=== PATIENT | male | born 1940 | race Caucasian/White ===

== ENCOUNTER 2017-09-04 20:43 | Inpatient (IN) | payer OTHER ==
[~2017-09-04] VITALS: Ht 193 cm; Wt 94.1 kg
--- NOTE | 2017-09-04 21:38 | ED INFLUENZA/URI COMPLAINT ---
History of Present Illness General Chief Complaint: Chest Pain Stated Complaint: CP AND FEVER Source: patient, family Exam Limitations: confusion, poor historian Vital Signs & Intake/Output Vital Signs & Intake/Output Vital Signs Date Time Temp Pulse Resp B/P B/P Pulse O2 O2 Flow FiO2 Mean Ox Delivery Rate 09/04 2217 99.7 09/04 2216 99.7 84 20 132/80 95 Nasal 3.0L Cannula 09/04 2140 103.0 09/04 2100 94 Nasal 6.0L Cannula 09/04 2100 103.3 110 24 143/68 89 Room Air ED Intake and Output 09/05 0000 09/04 1200 Intake Total 250 Output Total Balance 250 Intake, IV 250 Allergies Coded Allergies: No Known Allergies (09/04/17) Triage Note: PT BIBA FROM HOME FOR C/O PRODUCTIVE COUGH, DIAPHORESIS, AMS PER FAMILY. PT ARRIVES VERY WARM TO TOUCH TEMP 103.3 ORAL, DIAPHORETIC, A/O X3. PT WITH SLIGHT SLURRING OF WORDS. 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 APPEARS SINUS TACH 100-110. Triage Nurses Notes Reviewed? yes HPI: Patient presents for evaluation of fever and lower chest pain. Patient states he ate some bad popcorn earlier tonight. In regards to his chest pain he states that began after walking up the stairs on while reporting to cardiac rehabilitation (patient is status post TAPVR and prior cardiac stents). Patient admits to having chills and shakes yesterday. While at home prior to arrival he was noted to be slumped over a coffee table alongside the chair he was seated in. Family states that he seems to have been confused over the past number of weeks but seems worse in association with this episode. The patient denies dyspnea or abdominal pain vomiting diarrhea rashes or known ill contacts. He states he has been coughing "a little" and did have burning with urination yesterday. He also complains of nausea. Past History Travel History Traveled to [place] past 21 day No Medical History Any Pertinent Medical History? 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 No Review of Systems Review of Systems Constitutional: Reports: fever. EENTM: Reports: no symptoms. Respiratory: Reports: no symptoms. Cardiovascular: Reports: no symptoms. GI: Reports: no symptoms. Genitourinary: Reports: no symptoms. Musculoskeletal: Reports: no symptoms. Skin: Reports: no symptoms. Neurological/Psychological: Reports: confusion. Hematologic/Endocrine: Reports: no symptoms. Immunologic/Allergic: Reports: no symptoms. All Other Systems: Reviewed and Negative Physical Exam Physical Exam Ears, Nose, Throat: SEE BELOW Comments: Gen.: Well-nourished, well-developed, no acute respiratory distress. Head: Normocephalic, atraumatic. Eyes: Normal inspection bilaterally Ears: Normal inspection bilaterally Nose: Normal inspection Throat/mouth : Moist mucosa Neck: Supple, full range of motion, no goiter Heart: Regular rate and rhythm, no murmurs rubs or gallops Lungs: Clear to auscultation bilaterally with normal air entry Chest: Nontender Back: Normal range of motion Abdomen: Soft, diffuse tenderness with brief voluntary guarding but no apparent rebound tenderness, nondistended, normal bowel sounds Extremities: Normal range of motion grossly, equal radial pulses, no cyanosis clubbing or edema Neurologic: Cranial nerves grossly intact, speech is often mumbled Skin: warm and dry Psychiatric: Calm, cooperative, no apparent delusions or hallucinations, answers questions readily but often incomprehensibly Core Measures Sepsis Present: Yes Sepsis Focused Exam Completed? Yes Progress Differential Diagnosis: pneumonia, CHOLANGITIS, DIVERTICULITIS, URINARY TRACT INFECTION, BACTEREMIA Plan of Care: Orders Procedure Date/time Status LACTIC ACID 09/05 0038 Active LACTIC ACID 09/04 2137 Complete CULTURE,URINE 09/04 2136 Active BLOOD CULTURE 09/04 2136 Active URINALYSIS 09/04 2136 Complete TROPONIN LEVEL 09/04 2136 Complete LIPASE 09/04 2136 Complete COMPREHENSIVE METABOLIC PANEL 09/04 2136 Complete CBC WITHOUT DIFFERENTIAL 09/04 2136 Complete EKG 09/04 2044 Active Laboratory Tests 09/04/17 2310: Urine Color YEL, Urine Clarity HAZY H, Urine pH 6.0, Ur Specific [place] 1.025, Urine Protein 30 H, Urine Ketones NEG, Urine Nitrite POS H, Urine Bilirubin NEG, Urine Urobilinogen 1.0, Ur Leukocyte Esterase MOD H, Ur Microscopic SEDIMENT EXAMINED, Urine RBC 1-3, Urine WBC 50-75 H, Ur Epithelial Cells FEW, Urine Bacteria PACKD H, Urine Hemoglobin MOD H, Urine Glucose NEG 09/04/172137: Lactic Acid 3.3 H 09/04/172109: Anion Gap 16, Estimated GFR > 60, BUN/Creatinine Ratio 25.6 H, Glucose 115 H, Calcium 8.1 L, Total Bilirubin 1.4 H, AST 20, ALT 26, Alkaline Phosphatase 149 H, Troponin I 0.09, Total Protein 6.5, Albumin 3.5, Globulin 3.0, Albumin/ Globulin Ratio 1.2, Lipase 23, CBC w Diff NO MAN DIFF REQ, RBC 4.25 L, MCV 96.4 H, MCH 33.3 H, MCHC 34.5, RDW 13.1, MPV 7.3 L, Gran % 91.6 H, Lymphocytes % 7.3 L, Monocytes % 0.9 L, Eosinophils % 0.1, Basophils % 0.1, Absolute Granulocytes 6.0, Absolute Lymphocytes 0.5 L, Absolute Monocytes 0.1, Absolute Eosinophils 0, Absolute Basophils 0 Microbiology 09/04 2309 URINE ROUT: Urine Culture - RECD 09/05 2119 BLOOD: Blood Culture - RECD 09/04 2109 BLOOD: Blood Culture - RECD Diagnostic Imaging: Discussed w/RAD: Radiology Read, CT Scan. Radiology Impression: PATIENT: COLIN OCHOA PRESENT AGE: 77 PATIENT ACCOUNT NO: [id number] : 38 LOCATION: [facility] [place] ORDERING PHYSICIAN: Reji Concepcion MD SERVICE DATE: 09/04/17 EXAM TYPE: CAT - CT ABD & PELVIS W/O IV CONTRAS EXAMINATION: CT ABDOMEN AND PELVIS WITHOUT CONTRAST CLINICAL INFORMATION: Fever, abdominal pain, diffuse tenderness COMPARISON: CT lumbar spine 05/09/2014 TECHNIQUE: Multidetector volumetric imaging was performed from the superior aspect of the liver through the pubic symphysis. Sagittal and coronal reformatted images were obtained on the technologist's workstation. DLP: 1077 mGy-cm FINDINGS: LUNG BASES: Ascending thoracic vascular graft is partially imaged. There is bibasilar atelectasis, left greater than right. No convincing consolidation or effusion. LIVER, GALLBLADDER, AND BILIARY TREE: Images of the upper abdomen are significantly limited by patient positioning. There are multiple ill-defined hypoattenuating lesions scattered throughout the liver. Many of these lesions are subcentimeter in size. Gallbladder is surgically absent. PANCREAS: The pancreas is grossly unremarkable. There is fatty atrophy. SPLEEN: Unremarkable. ADRENAL GLANDS: There is a left adrenal mass measuring 2.4 x 1.6 cm. The Hounsfield units of 22. The right adrenal gland is unremarkable. KIDNEYS AND URETERS: There is moderate bilateral perinephric stranding. No hydronephrosis. No radiodense renal calculi. BLADDER: Unremarkable. GASTROINTESTINAL TRACT: The small and large bowel are unremarkable. The appendix is unremarkable. ABDOMINAL WALL: No significant hernia is appreciated. LYMPH NODES: Normal. VASCULAR: Moderate vascular calcifications involving the abdominal aorta. PELVIC VISCERA: Unremarkable. OSSEOUS STRUCTURES: Known transitional anatomy. Lumbarization of S1. Multiple compression deformities are present throughout the visualized thoracic and lumbar spine. Vertebral plasty involving L4 vertebral body is demonstrated. There is more than 50% loss in height of the L2 vertebral body. There are significant superior endplate deformities involving the T11, T12 and L1 vertebral bodies. IMPRESSION: 1. Limited noncontrast study. The study is also significantly limited by patient arm positioning over the upper abdomen. The entire upper abdomen demonstrates extensive streak artifact related to positioning. 2. Scattered hypodense lesions throughout the liver, partially seen. These may represent cysts. These are not well characterized on the current study. 3. Bilateral moderate perinephric stranding without associated obstruction. 4. Osteopenia with multiple compression fractures involving the lower thoracic and lumbar spine. The most severe fracture involving the L2 vertebral body appears similar to the CT of the lumbar spine from 05/09/2014. Recommend interventional radiology consultation for the evaluation of kyphoplasty if there are ongoing symptoms. 5. Indeterminant left adrenal mass. This could be further evaluated with dedicated CT with adrenal protocol. DICTATED BY: Karon Hand MD DATE/TIME DICTATED:09/04/172226 IMAGERY INTELLIGENCE :SONALI DATE/TIME TRANSCRIBED:09/04/172226 CONFIDENTIAL, DO NOT COPY WITHOUT APPROPRIATE AUTHORIZATION. <Electronically signed in Other Vendor System> SIGNED BY: Karon Hand MD 09/04/172238 CXR Impression: PATIENT: COLIN OCHOA PRESENT AGE: 77 PATIENT ACCOUNT NO: [id number] : 38 LOCATION: [facility] [place] ORDERING PHYSICIAN: Reji Concepcion MD SERVICE DATE: 09/04/17 EXAM TYPE: RAD - XRY-PORTABLE CHEST XRAY EXAMINATION: XR PORTABLE CHEST CLINICAL INFORMATION: Fever, chest pain, cough COMPARISON: None TECHNIQUE: Portable frontal view of the chest was obtained. FINDINGS: The examination is very limited. The entire left lower lobe is excluded from the [id number]. The cardiac silhouette is probably enlarged. The inferior aspect of the cardiac silhouette is not visualized. A dual-lead pacemaker is positioned over the left upper and lateral chest. Leads are not completely visualized. There is prominence of the upper mediastinum, possibly related to positioning and overlying vascular structures. The visualized portions of the lungs appear normally aerated. There is no right pleural effusion. A left pleural effusion cannot be excluded. IMPRESSION: Extremely technically limited examination. Recommend repeat evaluation. DICTATED BY: Karon Hand MD DATE/TIME DICTATED:09/04/172207 IMAGERY INTELLIGENCE:SONALI DATE/ TIME TRANSCRIBED:09/04/172207 CONFIDENTIAL, DO NOT COPY WITHOUT APPROPRIATE AUTHORIZATION. <Electronically signed in Other Vendor System> SIGNED BY: Karon Hand MD 09/04/172212 Initial ED EKG: NSR, rate (105), LBBB Prior EKG: changed (NO LBBB ON PRIOR (08/03/2008)) Comments: 09/04/2017 11:18:37 PM I have updated Colin and his son on test results. Patient seems a bit more lucid at this time. He has no specific complaints currently. We are awaiting the urinalysis. I have discussed my intention to hospitalize Colin given his high fever and clinical presentation. ED Sepsis Exam Date of Focused Sepsis Exam: 09/05/17 Time of Focused Sepsis Exam: 0007 Sepsis Cardiac Exam: Regular Rate/Rhythm Sepsis Resp Exam: CTA Sepsis Cap Refill Exam: <2 Sec Sepsis Peripheral Pulse Exam: Normal Sepsis Peripheral Pulse Location: Radial Sepsis Skin Color Exam: Normal for Ethnicity Skin Temp/Moisture Exam: Warm/Dry Departure Departure Disposition: STILL A PATIENT Condition: Stable Clinical Impression Primary Impression: Sepsis Secondary Impressions: Adrenal mass, left Compression fracture of body of thoracic vertebra Compression fx, lumbar spine Qualifiers: Encounter type: initial encounter Lumbar vertebra fracture level: L2 Fracture type: closed Qualified Code: S32.020A - Wedge compression fracture of second lumbar vertebra, initial encounter for closed fracture UTI (urinary tract infection) Qualifiers: Urinary tract infection type: site unspecified Hematuria presence: without hematuria Qualified Code: N39.0 - Urinary tract infection, site not specified Referrals: Tommy Paul DO (PCP/Family) Departure Forms: Customer Survey General Discharge Information Admission Note Spoke With: Chato Pickens MD Documentation of Exam: Documentation of any treatments & extenuating circumstances including Concerns Regarding Discharge (functional status, medication knowledge or non-compliance, living conditions, etc.) that warrant an admission rather than observation: Patient presents with a high fever and confusion. He meets criterion for sepsis secondary to urinary tract infection. This patient cannot be treated safely as an outpatient given his confusion high fever and the potential for septic shock and mortality. I feel he now requires an aggressive management with IV antibiotics, antipyretics and close clinical monitoring of vital signs and mentation. Culture results should be followed and treated accordingly. If patient does not respond to initial antibiotic therapy infectious disease or urology consultation should be considered. If the patient's mental status does not return to baseline, neurology consultation should be considered. Given the patient's advanced age and multiple medical comorbidities I feel his treatment and recovery will be potentially prolonged and complicated. Given this I feel he will require a multiple day hospitalization. Critical Care Note Critical Care Note Critical Care Time: 30-74 min
[2017-09-04 21:46] LABS: ABSOLUTE BASOPHIL COUNT 0 /CUMM (0.0-0.2); ABSOLUTE EOSINOPHIL COUNT 0 /CUMM (0.0-0.7); ABSOLUTE LYMPH COUNT 0.5 /CUMM (1.2-3.4); ABSOLUTE MONOCYTE COUNT 0.1 /CUMM (0.10-0.60); BASOPHIL % 0.1 % (0.0-2.0); EOSINOPHIL % 0.1 % (0-5); MEAN CORPUSCULAR HGB 33.3 PG (27.0-31.0); MEAN CORPUSCULAR HGB CONC 34.5 G/DL (33.0-37.0); MEAN CORPUSCULAR VOLUME 96.4 FL (80.0-94.0); MEAN PLATELET VOLUME 7.3 FL (7.4-10.4); PLATELET COUNT 154 /CUMM (130-400); RBC DISTRIBUTION WIDTH 13.1 % (11.5-14.5); RED BLOOD CELL CT 4.25 /CUMM (4.70-6.10); WHITE BLOOD CELL COUNT 6.5 /CUMM (4.8-10.8)
[2017-09-04 21:58] LABS: GRANULOCYTE % 91.6 % (42.2-75.2)
--- NOTE | 2017-09-04 22:13 | RADIOLOGY REPORT ---
EXAMINATION: XR PORTABLE CHEST CLINICAL INFORMATION: Fever, chest pain, cough COMPARISON: None TECHNIQUE: Portable frontal view of the chest was obtained. FINDINGS: The examination is very limited. The entire left lower lobe is excluded from the [id number]. The cardiac silhouette is probably enlarged. The inferior aspect of the cardiac silhouette is not visualized. A dual-lead pacemaker is positioned over the left upper and lateral chest. Leads are not completely visualized. There is prominence of the upper mediastinum, possibly related to positioning and overlying vascular structures. The visualized portions of the lungs appear normally aerated. There is no right pleural effusion. A left pleural effusion cannot be excluded. IMPRESSION: Extremely technically limited examination. Recommend repeat evaluation.
--- NOTE | 2017-09-04 22:39 | CT SCAN REPORT ---
EXAMINATION: CT ABDOMEN AND PELVIS WITHOUT CONTRAST CLINICAL INFORMATION: Fever, abdominal pain, diffuse tenderness COMPARISON: CT lumbar spine 05/09/2014 TECHNIQUE: Multidetector volumetric imaging was performed from the superior aspect of the liver through the pubic symphysis. Sagittal and coronal reformatted images were obtained on the technologist's workstation. DLP: 1077 mGy-cm FINDINGS: LUNG BASES: Ascending thoracic vascular graft is partially imaged. There is bibasilar atelectasis, left greater than right. No convincing consolidation or effusion. LIVER, GALLBLADDER, AND BILIARY TREE: Images of the upper abdomen are significantly limited by patient positioning. There are multiple ill-defined hypoattenuating lesions scattered throughout the liver. Many of these lesions are subcentimeter in size. Gallbladder is surgically absent. PANCREAS: The pancreas is grossly unremarkable. There is fatty atrophy. SPLEEN: Unremarkable. ADRENAL GLANDS: There is a left adrenal mass measuring 2.4 x 1.6 cm. The Hounsfield units of 22. The right adrenal gland is unremarkable. KIDNEYS AND URETERS: There is moderate bilateral perinephric stranding. No hydronephrosis. No radiodense renal calculi. BLADDER: Unremarkable. GASTROINTESTINAL TRACT: The small and large bowel are unremarkable. The appendix is unremarkable. ABDOMINAL WALL: No significant hernia is appreciated. LYMPH NODES: Normal. VASCULAR: Moderate vascular calcifications involving the abdominal aorta. PELVIC VISCERA: Unremarkable. OSSEOUS STRUCTURES: Known transitional anatomy. Lumbarization of S1. Multiple compression deformities are present throughout the visualized thoracic and lumbar spine. Vertebral plasty involving L4 vertebral body is demonstrated. There is more than 50% loss in height of the L2 vertebral body. There are significant superior endplate deformities involving the T11, T12 and L1 vertebral bodies. IMPRESSION: 1. Limited noncontrast study. The study is also significantly limited by patient arm positioning over the upper abdomen. The entire upper abdomen demonstrates extensive streak artifact related to positioning. 2. Scattered hypodense lesions throughout the liver, partially seen. These may represent cysts. These are not well characterized on the current study. 3. Bilateral moderate perinephric stranding without associated obstruction. 4. Osteopenia with multiple compression fractures involving the lower thoracic and lumbar spine. The most severe fracture involving the L2 vertebral body appears similar to the CT of the lumbar spine from 05/09/2014. Recommend interventional radiology consultation for the evaluation of kyphoplasty if there are ongoing symptoms. 5. Indeterminant left adrenal mass. This could be further evaluated with dedicated CT with adrenal protocol.
--- NOTE | 2017-09-05 00:54 | History & Physical ---
AlexeiKaren Tim 09/05/17 0044: General Information and HPI MD Statement: I have seen and personally examined ANN OCHOA and documented this H&P. The patient is a 77 year old M who presented with a patient stated chief complaint of [fever]. Source of Information: patient, family Exam Limitations: confusion, poor historian History of Present Illness: Mr. Ochoa is a 77yo M w/ PMH of CAD status post 4 stents, status post pacemaker ? 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 Patient admitted to having some chills and body shaking yesterday, and down prior to arrival today at home, patient probably has slumped over a coffee table along site was sutured with sitting, however without any loss of consciousness/head injuries. Family stated to the ER staff that patient was having confusion over the past few weeks, but seem to be worse currently. During our clinical action, patient appeared to be recovered and not confused to give a history, however appeared to be a poor historian. Patient admitted having dysuria as well along with nausea, without any vomiting. During our clinical interaction, patient denied recent travel/sick contacts, lightheadedness/diaphoresis/night sweat/weight change/cough/SOB/Chest Pain/ Palpitation/Abdominal pain/bowel movement abnormality, or other skin/ musculoskeletal/neurological/mood disorders, or dietary/appetite change. -Smoking: denied -Alcohol: denied -Rec Drugs: denied Allergies/Medications Allergies: Coded Allergies: No Known Allergies (09/04/17) Home Med list Amlodipine Besylate 10 MG TABLET 1 TAB PO DAILY HTN (Reported) Apixaban (Eliquis) 5 MG TABLET 1 TAB PO BID s/p pacemaker/TAVR (Reported) Budesonide/Formoterol Fumarate (Symbicort 160-4.5 Mcg Inhaler) 160 MCG-4.5 MCG/ ACTUATION HFA.AER.AD 2 PUF INH BID Asthma/COPD (Reported) Calcium (Elemental-Fr Calcarb) (Calcium Carbonate) 600 MG CALCIUM (1,500 MG) TABLET 1 TAB PO BID supplements (Reported) Clopidogrel Bisulfate (Clopidogrel) 75 MG TABLET 1 TAB PO DAILY Blood thinner (Reported) Escitalopram Oxalate (Lexapro) 20 MG TABLET 1 TAB PO DAILY Depression/Anxiety (Reported) Lisinopril 20 MG TABLET 1 TAB PO DAILY Blood Pressure (Reported) Lotrisone (Lotrisone Cream) 1 %-0.05 % CREAM..G. 1 MITALI TOP QAMPM Skin ( Reported) apply to affected area(s) Melatonin 3 MG TABLET 1 TAB PO QPM Sleep (Reported) Metoprolol Succ XL (Toprol XL) 50 MG TAB.ER.24H 1 TAB PO DAILY rate control ( Reported) Mirabegron (Myrbetriq) 50 MG TAB.ER.24H 1 TAB PO DAILY bladder (Reported) Mometasone Furoate (Elocon) 0.1 % CREAM..G. 1 MITALI TOP BID Skin (Reported) apply to affected area(s) Multivitamin (Multivitamins) 1 EACH CAPSULE 1 TAB PO DAILY supplements ( Reported) [place]-3 Fatty Acids (Fish Oil Concentrate) 1,000 MG CAPSULE 1 CAP PO DAILY Supplement (Reported) Pravastatin Sodium 40 MG TABLET 1 TAB PO DAILY HLD/Heart (Reported) Ubidecarenone (Coenzyme Q10) 200 MG CAPSULE 1 TAB PO DAILY Heart Health ( Reported) Past History Travel History Traveled to [place] past 21 day No Medical History Neurological: NONE EENT: NONE Cardiovascular: PACEMAKER CARDIOVERSION 4 STENTS Respiratory: asthma Gastrointestinal: NONE Hepatic: NONE Renal: NONE Musculoskeletal: NONE Psychiatric: NONE Endocrine: NONE Blood Disorders: NONE Cancer(s): NONE 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 Exam & Diagnostic Data Last 24 Hrs of Vital Signs/I&O Vital Signs Date Time Temp Pulse Resp B/P B/P Pulse O2 O2 Flow FiO2 Mean Ox Delivery Rate 09/04 2217 99.7 09/04 2216 99.7 84 20 132/80 95 Nasal 3.0L Cannula 09/04 2140 103.0 09/04 2100 94 Nasal 6.0L Cannula 09/04 2100 103.3 110 24 143/68 89 Room Air Intake & Output 09/05 0800 09/05 0000 09/04 1600 Intake Total 250 Output Total Balance 250 Intake, IV 250 Physical Exam General Appearance Alert, Oriented X3, Cooperative, No Acute Distress Skin No Breakdown, No Significant Lesion, bilateral psoriasis lesions Skin Temp/Moisture Exam: Warm/Dry Sepsis Skin Exam (color): Normal for Ethnicity HEENT Atraumatic, PERRLA Neck Supple Cardiovascular Regular Rate Lungs Clear to Auscultation, Normal Air Movement Abdomen Normal Bowel Sounds, Soft, No Tenderness Neurological Normal Speech, Strength at 5/5 X4 Ext, Sensation Intact Extremities No Edema, Normal Pulses Last 24 Hrs of Labs/Todd: Laboratory Tests 09/05/17 0117: Lactic Acid 1.3 09/04/172309: Urine Color YEL, Urine Clarity HAZY H, Urine pH 6.0, Ur Specific [place] 1.025, Urine Protein 30 H, Urine Ketones NEG, Urine Nitrite POS H, Urine Bilirubin NEG, Urine Urobilinogen 1.0, Ur Leukocyte Esterase MOD H, Ur Microscopic SEDIMENT EXAMINED, Urine RBC 1-3, Urine WBC 50-75 H, Ur Epithelial Cells FEW, Urine Bacteria PACKD H, Urine Hemoglobin MOD H, Urine Glucose NEG 09/04/172137: Lactic Acid 3.3 H 09/04/172109: Anion Gap 16, Estimated GFR > 60, BUN/Creatinine Ratio 25.6 H, Glucose 115 H, Calcium 8.1 L, Total Bilirubin 1.4 H, AST 20, ALT 26, Alkaline Phosphatase 149 H, Troponin I 0.09, Total Protein 6.5, Albumin 3.5, Globulin 3.0, Albumin/ Globulin Ratio 1.2, Lipase 23, CBC w Diff NO MAN DIFF REQ, RBC 4.25 L, MCV 96.4 H, MCH 33.3 H, MCHC 34.5, RDW 13.1, MPV 7.3 L, Gran % 91.6 H, Lymphocytes % 7.3 L, Monocytes % 0.9 L, Eosinophils % 0.1, Basophils % 0.1, Absolute Granulocytes 6.0, Absolute Lymphocytes 0.5 L, Absolute Monocytes 0.1, Absolute Eosinophils 0, Absolute Basophils 0 Microbiology 09/04 2309 URINE ROUT: Urine Culture - RECD 09/05 2119 BLOOD: Blood Culture - RECD 09/04 2109 BLOOD: Blood Culture - RECD Diagnostic Data EKG Results New onset LBBB Assessment/Plan Assessment: On admission, Vitals: T-max 103.3 trended down to 99.7, tachycardia 110 trended down to 84, RR 24, now 20, BP 132/80, 95% on the free liters -CBC: No leukocytosis, stable H&H, granulocytosis 91.6% -BMP: Lactic acidosis 3.3, alk phos 149, troponin 0.091 -UA/Microbiology: Positive for nitrite/LE/WBC -CXR: Extremely technically limited exam. Recommend repeat evaluation -Abdominal CT: Limited exam, scattered hypodense lesions throughout the liver, partially seen which may represented cysts. Bilateral moderate perinephric stranding without associated obstruction. Indeterminant left adrenal mass. -EKG: Sinus tach 105 with LBBB w/o significant ST-T abnormalities. LBBB was not new based on [facility] records. -Interventions in ER: IV bolus 1, ceftriaxone 1, acetaminophen IV 1 Problem list/Assessment/Hospital Course: #Severe sepsis (fever, tachycardia, lactic acidosis, source of infection) secondary to UTI/pyelonephritis #Pyelonephritis without obstruction #Lactic acidosis, resolved to 1.3 #Chest pain pending rule out ACS #PMH of cardiac stent/TAVR/Pacemaker, asthma, psoriasis - Admit to General medicine, vitals per protocol -Supplemental O2 as needed, TRC as needed course/culture Patient claimed that he has take all medications tonight, however was not sure when the patient took the evening dose. Will restart Eliquis in the morning. a.m. DVT prophylaxis Eliquis + ALPS Heart healthy diet Full Code As Ranked By This Provider Problem List: 1. Sepsis 2. UTI (urinary tract infection) Qualifiers Urinary tract infection type: site unspecified Hematuria presence: without hematuria Qualified Code: N39.0 - Urinary tract infection, site not specified 3. Adrenal mass, left Core Measures/Misc (12/20) Acute Coronary Syndrome ACS Diagnosis: No Congestive Heart Failure Congestive Heart Failure Diagnosis No Cerebrovascular Accident CVA/TIA Diagnosis: No VTE (View Protocol) VTE Risk Factors Age>40 No Mechanical VTE Prophylaxis d/t N/A MechProphylax Ordered No VTE Pharm Prophylaxis d/t NA PharmProphylax ordered Sepsis (View protocol) Sepsis Present: Yes If YES complete Sepsis Event Note If YES complete Sepsis Event Note Chato Pickens MD 09/05/17 0232: Core Measures/Misc (12/20) Sepsis (View protocol) If YES complete Sepsis Event Note If YES complete Sepsis Event Note Attending MD Review Statement Attending Statement Attending MD Statement: examined this patient, discuss w/resident/PA/LAW SECRETARY, discussed with family, discussed with nursing Attending Assessment/Plan: Mr. Ochoa is a 77 y/o male with extensive cardiac history, status post TAVR, coronary artery disease status post lung Disease, asthma comes in with complaints of altered mental status and for chest pain that began after walking up stairs On examination - blood pressure 132/80, heart rate of 110, temperature maximum of 103.3, initially on room air, 3-4 L nasal cannula Assessment 1. Severe sepsis - UTI 2. Pyelonephritis 3. Non specific chest pain 4. Lactic acidosis - resolving 5. Troponin elevation Plan Admit to Telemetry. Continue with IV ceftriaxone. We'll follow up on troponins and cardiac enzymes. EKG shows evidence of left bundle branch block however unclear if this is new. Continue home medications including clopidogrel. Holding Eliquis. 2DTTE will be obtained and discussed with cardiology. Enmanuel Ng 09/05/17 0426: Core Measures/Misc (12/20) Sepsis (View protocol) If YES complete Sepsis Event Note If YES complete Sepsis Event Note Resident Review Statement Resident Statement: examined this patient, discussed with application development intern, agreed with application development intern Other Findings: Mr Ochoa is a 77 year old man w/ a PMHx of BPH s/p TURP ( 2011, by Dr. Keller/ [facility]) asthma, ? COPD, Aortic stenosis s/p TAVR + cardiac stents ( Dr. Hartman ), pAfib ( on Eliquis ) s/p pacemaker, Psoriasis who was brought to the ER with a chief concern of altered mental status, increasing confusion on the day of presentation. He reported having exertional chest discomfort 3 days ago, while he was going for his cardiac rehabilitation, which was apparently evaluated by the manager special events; and was discharged home. After he returned home, he reported generalized weakness, myalgias which were relieved after taking Advil. On the day of admission, he reported suprapubic abdominal discomfort, associated with dysuria. He was brought in by his family when he was found to be confused. He did not have any chest pain, palpitations, shortness of breath. He did not have any nausea, vomiting or diarrhea. He follows up with his family care physician regularly, and has been compliant with his medications. No lightheadedness, vision changes or loss of consciousness. Past smoker, and occasional alcohol use. At the time of admission-temperature 103.0, pulse rate 84, respiration 20, blood pressure 132/80, 95% on 3L. General Exam: AAOx3, No acute distress, Skin: No rashes, no breakdown,dry mucosa ; HEENT: PERRLA, EOMI; Neck: Supple, No JVD; No cervical lymphadenopathy; CVS: Reg Rate, Normal S1,S2, No MGR; Resp: Normal air entry, no ronchi/rales;Abdomen: Soft, No tenderness, Normal Bowel Sounds, pacemaker in place;Neuro: Normal Speech, Strength 5/5 b/l x 4 extremities, Sensation intact, CN III-XII NL, Reflexes 2+;Extremities: No cyanosis, no pedal edema. Pertinent lab findings: WBC 6.5 (91.6 granulocytes), Hb 14.1, MCV 96.4 Na 137, K 3.5, Cl 103, HCO3 18, AG 16. BUN 23, creatinine 0.9. Lactic acid 3.3--> 1.3 Total bilirubin 1.4, AST 20, ALT 26, alkaline phosphatase 149 Troponin I-0.09-->0.58, lipase 23 EKG revealed normal sinus rhythm, left bundle branch block, no ST-T wave changes could b confirmed given left bundle branch block. Repeat EKG confirmed left bundle branch block, with PVCs. Urinalysis revealed-his urine, urine protein 30, nitrite positive, leukocyte esterase moderate, WBC 50-75, bacteria packed. Chest t-sco-gzhlesp examination. Repeat chest x-ray pending CAT scan abdomen and pelvis-09/04/2017- 1. Limited noncontrast study. The study is also significantly limited by patient arm positioning over the upper abdomen. The entire upper abdomen demonstrates extensive streak artifact related to positioning. 2. Scattered hypodense lesions throughout the liver, partially seen. These may represent cysts. These are not well characterized on the current study. 3. Bilateral moderate perinephric stranding without associated obstruction. 4. Osteopenia with multiple compression fractures involving the lower thoracic and lumbar spine. The most severe fracture involving the L2 vertebral body appears similar to the CT of the lumbar spine from 05/09/2014. 5. Indeterminant left adrenal mass. This could be further evaluated with dedicated CT with adrenal protocol. Blood culture, urine culture pending. Problem list: 1. Pyelonephritis 2. h/o Vertebral fracture 3. h/o CAD 4. h/o Afib s/p pacemaker 5. h/o COPD 6. h/o aneurysm aortic 7. Sepsis 8. LBBB (not new ) 9. h/o s/p TAVR 10. Multiple liver lesions likely causing elevated alk phos. 11. h/o BPH 12. Lactic acidosis 13. Rule out ACS. Etiology in this case with dysuria associated with fever, chills, and considering pyelonephritis being a clinical diagnosis, radiological evidence of fat stranding is helpful in confirming the diagnosis. Bacterial etiology with Escherichia coli being the most likely organism, but other pathogens should be kept in mind given his h/o BPH s/p TURP. In regards to sepsis, he has lactic acidosis which needs to be treated with aggressive IV fluids, but given inadequate knowledge of last echocardiogram, fluids to be given if the vitals become s unstable. Given his borderline elevation in troponin, follow-up troponin was obtained which revealed elevated level likely secondary to type II [place] and [place] needs to be ruled out given his history of recent cardiac stents. -At the patient to general medicine service. -Empiric antibiotics with ceftriaxone, pending urine culture -Follow blood culture, usually do not correlate with more severe disease. -Monitor vitals closely -Follow CBCs daily -Treat sepsis with 0.9% saline, follow blood cultures, trend lactate. -Follow EKG, troponin to rule out ACS. -Obtain records from the manager special events. -Hold AC for now, as per the manager special events, pending his evaluation. -Aspirin 3251. Hold beta diamond given hypotension. Restart when able. -Evaluation of liver cysts as an outpatient. Checklist: 1. DVT Ppx- Eliquis. Please start heparin if there is no procedure planned by the cardilogist. 2. GI PPx- Protonix prn. 3. Code Full code. 4. Consults-Cardiology. Plan: 1.
[2017-09-05] MEDS ORDERED: TOPROL XL50 M2 PO (01:25)
[2017-09-05] MEDS ORDERED: AMLODIPINE BESY10 M1 PO (01:25)
[2017-09-05] MEDS ORDERED: ELIQUIS5 M1 PO (01:26)
[2017-09-05] MEDS ORDERED: CALCIUM CARBON600 M1 PO (01:28)
[2017-09-05] MEDS ORDERED: CLOPIDOGREL75 M1 PO (01:28)
[2017-09-05] MEDS ORDERED: LOTRISONE CREAM15 G1 TOP (01:29)
[2017-09-05] MEDS ORDERED: COENZYME Q10200 MG PO (01:29)
[2017-09-05] MEDS ORDERED: LEXAPRO20 M1 PO (01:30)
[2017-09-05] MEDS ORDERED: FISH OIL CONC1000 M1 PO (01:30)
[2017-09-05] MEDS ORDERED: MELATONIN3 M4 PO (01:31)
[2017-09-05] MEDS ORDERED: LISINOPRIL20 M1 PO (01:31)
[2017-09-05] MEDS ORDERED: ELOCON15 GM TOP (01:32)
[2017-09-05] MEDS ORDERED: MULTIVITAMINS1 EAC8 PO (01:32)
[2017-09-05] MEDS ORDERED: SYMBICORT 16010.2 GM INH (01:33)
[2017-09-05] MEDS ORDERED: MYRBETRIQ50 M1 PO (01:33)
[2017-09-05] MEDS ORDERED: PRAVASTATIN SOD40 M2 PO (01:33)
--- NOTE | 2017-09-05 05:00 | Event Note ---
Event Note Event Note: S: Patient's second set of EKG/troponin showed borderline A. fib, with troponin trended up to 0.58. Patient was also hypotensive at 86/55 around 4:30 in the morning, however remain asymptomatic without any chest pain/lightheadedness/any other specific complaint. B: Mr. Villeda is a 77yo M w/ PMH of CAD status post 4 stents, status post pacemaker? 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 A/R: Patient was then transferred to telemetry, and cardiology manufacturing controls engineer Dr. Matson was contacted over the phone. Dr. Corbin recommended to hold Eliquis in the morning, agreeable with 1 dose of aspirin, and will see him in the morning. Echocardiogram was ordered as well. Patient was also placed on IV fluid bolus and will recheck blood pressure after bolus. Pending 3rd set of EKG/ Trop as well.
[2017-09-05 07:00] VITALS: BP 116/70
--- NOTE | 2017-09-05 09:17 | PN- Att Addend ---
Attending Addendum Attending Brief Note Patient seen and examined. 77-year-old male with multiple medical problems including coronary artery disease, TAVR on Eliquis, hypertension and hyperlipidemia who was brought in by the family for weakness and confusion. He was found to be septic in the emergency room- he had a white count that was normal but he was febrile to 103, tachycardic with lactic acidosis. The presumed source of the sepsis Is urinary given his positive UA. His chest x-ray was uninterpretable on admission and I'll need to repeat that today. His CT abdomen had a lot of streak artifact but no obvious source there was bilateral perinephric stranding, compression fractures and an adrenal mass that we need to be worked up. Right now because of the hypotension on arrival he was hydrated aggressively and his Norvasc and YEFRI inhibitor and metoprolol are on hold. He also had positive troponin which we think is the demand ischemia secondary to the sepsis. He is on the aspirin, will not give him the beta diamond because of the hypotension, he is on the statin. Today's labs are pending and will follow- up his LFTs as well as his troponin. Will need to speak to cardiology as his Eliquis remains on hold and will follow closely.
[2017-09-05 10:05] LABS: ABSOLUTE BASOPHIL COUNT 0 /CUMM (0.0-0.2); ABSOLUTE EOSINOPHIL COUNT 0 /CUMM (0.0-0.7); ABSOLUTE GRANULOCYTE CT 13.2 /CUMM (1.4-6.5); ABSOLUTE LYMPH COUNT 0.4 /CUMM (1.2-3.4); ABSOLUTE MONOCYTE COUNT 0.7 /CUMM (0.10-0.60); BASOPHIL % 0 % (0.0-2.0); EOSINOPHIL % 0.2 % (0-5); GRANULOCYTE % 91.9 % (42.2-75.2); HEMATOCRIT 38.3 % (42-52); MEAN CORPUSCULAR HGB 33.6 PG (27.0-31.0); MEAN CORPUSCULAR HGB CONC 34.5 G/DL (33.0-37.0); MEAN CORPUSCULAR VOLUME 97.6 FL (80.0-94.0); MEAN PLATELET VOLUME 7.3 FL (7.4-10.4); PLATELET COUNT 143 /CUMM (130-400); RBC DISTRIBUTION WIDTH 13.5 % (11.5-14.5); RED BLOOD CELL CT 3.92 /CUMM (4.70-6.10)
[2017-09-05 10:13] LABS: WHITE BLOOD CELL COUNT 14.4 /CUMM (4.8-10.8)
--- NOTE | 2017-09-05 13:32 | Cons- Cardiology ---
General Information and HPI Consulting Request Date of Consult: 09/05/17 Requested By: Chato Pickens MD Reason for Consult: Recent valve replacement; recent pacemaker; coronary artery disease; elevated troponin Source of Information: patient, family Exam Limitations: no limitations History of Present Illness: Mr. Villeda is a very nice 77-year-old male with history of coronary artery disease, status post multiple stents several months ago, status post TAVR at [facility] by Drs. Hartman and Catrachita, subsequent permanent pacemaker implantation, etc. The patient had been doing reasonably well but was brought into the hospital by ambulance with cough, diaphoresis, altered mental status, shaking, and a reported transient episode of chest discomfort while at cardiac rehab on . According to the family, the patient was increasingly confused. He was having episodes of shaking. He was noted to be slumped over a coffee table but there was no obvious syncope or loss of consciousness. The patient notes that he started having urinary burning sensation at least 3 days prior to admission. In the emergency room, the patient was noted to be hypotensive. His troponin was elevated. Lab evaluation showed an elevated white count, gram-negative rods in the urine and blood (ID and sensitivity pending). The patient was started on antibiotics and admitted to the telemetry floor for monitoring. Today, the patient is feeling somewhat better Allergies/Medications Allergies: Coded Allergies: No Known Allergies (09/04/17) Home Med List: Amoxicillin 500 MG CAPSULE 500 MG PO TID UTI Apixaban (Eliquis) 5 MG TABLET 1 TAB PO BID s/p pacemaker/TAVR (Reported) Budesonide/Formoterol Fumarate (Symbicort 160-4.5 Mcg Inhaler) 160 MCG-4.5 MCG/ ACTUATION HFA.AER.AD 2 PUF INH BID Asthma/COPD (Reported) Calcium (Elemental-Fr Calcarb) (Calcium Carbonate) 600 MG CALCIUM (1,500 MG) TABLET 1 TAB PO BID supplements (Reported) Clopidogrel Bisulfate (Clopidogrel) 75 MG TABLET 1 TAB PO DAILY Blood thinner (Reported) Escitalopram Oxalate (Lexapro) 20 MG TABLET 1 TAB PO DAILY Depression/Anxiety . Lisinopril 20 MG TABLET 1 TAB PO DAILY Blood Pressure (Reported) Lotrisone (Lotrisone Cream) 1 %-0.05 % CREAM..G. 1 MITALI TOP QAMPM Skin ( Reported) apply to affected area(s) Melatonin 3 MG TABLET 1 TAB PO QPM Sleep (Reported) Metoprolol Succ XL (Toprol XL) 50 MG TAB.ER.24H 1 TAB PO DAILY rate control ( Reported) Mirabegron (Myrbetriq) 50 MG TAB.ER.24H 1 TAB PO DAILY bladder (Reported) Mometasone Furoate (Elocon) 0.1 % CREAM..G. 1 MITALI TOP BID Skin (Reported) apply to affected area(s) Multivitamin (Multivitamins) 1 EACH CAPSULE 1 TAB PO DAILY supplements ( Reported) Barnum-3 Fatty Acids (Fish Oil Concentrate) 1,000 MG CAPSULE 1 CAP PO DAILY Supplement (Reported) Pravastatin Sodium 40 MG TABLET 1 TAB PO DAILY HLD/Heart (Reported) Ubidecarenone (Coenzyme Q10) 200 MG CAPSULE 1 TAB PO DAILY Heart Health ( Reported) Current Medications: Current Medications Sig/Holley Start time Last Medication Dose Route Stop Time Status Admin Acetaminophen 650 MG Q4P PRN 09/05 1245 AC 09/05 PO 1241 Acetaminophen 1,000 MG ONCE ONE 09/045 DC 09/04 N/A 1 UNIT IV 09/04 2158 2141 Acetaminophen 0 .STK-MED ONE 09/04 2115 DC IV Amlodipine Besylate 10 MG DAILY 09/05 0900 CAN PO Apixaban 5 MG BID 09/05 1215 AC PO Apixaban 5 MG BID 09/05 0900 CAN PO Aspirin 0 .STK-MED ONE 09/05 0447 DC PO Aspirin 325 MG ONCE ONE 09/05 0445 DC 09/05 PO 09/05 0446 0443 Budesonide/ 2 PUF BID 09/05 2100 AC Formoterol Fumarate INH Ceftriaxone Sodium 1,000 MG 2300 09/05 2300 AC IV Ceftriaxone Sodium 1,000 MG DAILY 09/05 0900 DC IV Ceftriaxone Sodium 0 .STK-MED ONE 09/05 0009 DC .ROUTE Ceftriaxone Sodium 1,000 MG ONCE ONE 09/04 2345 DC 09/05 IV 09/04 2346 0010 Clopidogrel Bisulfate 75 MG DAILY 09/05 0900 AC 06 PO 0901 Clotrimazole 1 MITALI BID 09/05 0900 AC 06 TOP 0901 Escitalopram Oxalate 20 MG DAILY 09/05 0900 AC 09/05 PO 0900 Melatonin 3 MG QPM 09/05 0200 AC PO Metoprolol Succinate 50 MG DAILY 09/05 0900 CAN PO Pravastatin Sodium 40 MG 1700 09/05 1700 AC PO Sodium Chloride 1,000 ML BOLUS ONE 09/05 0630 DC IV 09/05 0729 Sodium Chloride 1,000 ML BOLUS ONE 09/05 0545 DC 09/05 IV 09/05 0644 0555 Sodium Chloride 1,000 ML BOLUS ONE 09/05 0445 DC 09/05 IV 09/05 0544 0438 Sodium Chloride 1,000 ML BOLUS ONE 09/04 2145 DC 09/04 IV 09/04 2344 2148 Triamcinolone 1 MITALI BID 09/05 09 AC 09/05 Acetonide TOP 0901 Past History Travel History Traveled to [place] past 21 day No Medical History Blood Transfusion Hx: No Neurological: NONE EENT: NONE Cardiovascular: PACEMAKER CARDIOVERSION 4 STENTS Respiratory: asthma Gastrointestinal: NONE Hepatic: NONE Renal: NONE Musculoskeletal: NONE Psychiatric: NONE Endocrine: NONE Blood Disorders: NONE Cancer(s): NONE NEWSSTAND VENDOR/Reproductive: NONE Surgical History Surgical History: non-contributory Psychosocial History Where Do You Live? Home Smoking Status: Former Smoker ETOH Use: denies use Illicit Drug Use: denies illicit drug use Exam & Diagnostic Data Vital Signs and I&O Vital Signs Date Time Temp Pulse Resp B/P B/P Pulse O2 O2 Flow FiO2 Mean Ox Delivery Rate 09/05 1241 101.0 09/05 08 95 Nasal 3.0L Cannula 09/05 07 97.3 92 20 116/70 97 Nasal 3.0L Cannula 09/05 06 Nasal 3.0L Cannula 09/06 603 97.9 84 16 107/60 96 Nasal 2.0L Cannula 09/05 0532 86 18 80/53 97 Nasal 2.0L Cannula 09/05 0432 98.1 104 18 85/58 97 Nasal 2.0L Cannula 09/048 99.7 09/04 2216 99.7 84 20 132/80 95 Nasal 3.0L Cannula 09/04 2140 103.0 09/04 2100 94 Nasal 6.0L Cannula 09/04 2100 103.3 110 24 143/68 89 Room Air Intake & Output 09/05 1600 09/05 0800 09/05 0000 09/04 1600 09/04 0800 09/04 0000 Intake Total 1000 250 Output Total Balance 1000 250 Intake, IV 1000 250 Patient 255 lb Weight Weight Bed scale Measurement Method Physical Exam: General Appearance: well developed/nourished, overweight white male, alert, awake, oriented Head: normal HEENT: Normal Neck: supple, JVP normal, carotid upstrokes normal bilaterally, no masses or thyromegaly Respiratory: chest non-tender, scattered rhonchi/wheeze bilateral Cardiovascular: regular rate/rhythm, normal S1, S2, 1-2/6 systolic murmur Abdomen: normal bowel sounds, soft, non-tender Extremities: normal inspection, no edema Vascular: Pulses are 2+ and equal bilaterally Neurologic: Grossly normal/nonfocal Labs/Todd Results: Laboratory Tests 09/05 09/05 09/05 0935 0935 0251 Chemistry Sodium (137 - 145 mmol/L) 140 Cancelled Potassium (3.5 - 5.1 mmol/L) 4.1 Cancelled Chloride (98 - 107 mmol/L) 108 H Cancelled Carbon Dioxide (22 - 30 mmol/L) 22 Cancelled Anion Gap (5 - 16) 10 Cancelled BUN (9 - 20 mg/dL) 24 H Cancelled Creatinine (0.7 - 1.2 mg/dL) 0.8 Cancelled Estimated GFR (>60 ml/min) > 60 BUN/Creatinine Ratio (7 - 25 %) 30.0 H Cancelled Troponin I (<0.11 ng/ml) 0.82 *H 0.58 *H Hematology CBC w Diff MAN DIFF ORDERED WBC (4.8 - 10.8 /CUMM) 14.4 H RBC (4.70 - 6.10 /CUMM) 3.92 L Hgb (14.0 - 18.0 G/DL) 13.2 L Hct (42 - 52 %) 38.3 L MCV (80.0 - 94.0 FL) 97.6 H MCH (27.0 - 31.0 PG) 33.6 H MCHC (33.0 - 37.0 G/DL) 34.5 RDW (11.5 - 14.5 %) 13.5 Plt Count (130 - 400 /CUMM) 143 MPV (7.4 - 10.4 FL) 7.3 L Gran % (42.2 - 75.2 %) 91.9 H Lymphocytes % (20.5 - 51.1 %) 2.7 L Monocytes % (1.7 - 9.3 %) 5.2 Eosinophils % (0 - 5 %) 0.2 Basophils % (0.0 - 2.0 %) 0 Absolute Granulocytes (1.4 - 6.5 /CUMM) 13.2 H Segmented Neutrophils (42.2 - 75.2 %) 86 H Band Neutrophils (0.0 - 5.0 %) 7 H Absolute Lymphocytes (1.2 - 3.4 /CUMM) 0.4 L Lymphocytes (20.5 - 51.1 %) 3 L Monocytes (1.7 - 9.3 %) 4 Absolute Monocytes (0.10 - 0.60 /CUMM) 0.7 H Absolute Eosinophils (0.0 - 0.7 /CUMM) 0 Absolute Basophils (0.0 - 0.2 /CUMM) 0 Platelet Estimate (ADEQUATE) VERIFIED BY SMEAR Normocytic RBCs VERIFIED Normochromic RBCs VERIFIED 09/05 09/04 09/04 0117 2310 2138 Chemistry Lactic Acid (0.7 - 2.1 mmol/L) 1.3 3.3 H Urines Urine Color (YEL,AMB,STR) YEL Urine Clarity (CLEAR) HAZY H Urine pH (5.0 - 8.0) 6.0 Ur Specific [place] (1.001 - 1.035) 1.025 Urine Protein (NEG,<30 MG/DL) 30 H Urine Ketones (NEG) NEG Urine Nitrite (NEG) POS H Urine Bilirubin (NEG) NEG Urine Urobilinogen (0.1 - 1.0 EU/dl) 1.0 Ur Leukocyte Esterase (NEG) MOD H Ur Microscopic SEDIMENT EXAMINED Urine RBC (0 - 5 /HPF) 1-3 Urine WBC (0 - 2 /HPF) 50-75 H Ur Epithelial Cells (NONE,FEW) FEW Urine Bacteria (NEG/NONE) PACKD H Urine Hemoglobin (NEG) MOD H Urine Glucose (N MG/DL) NEG 09/04 2109 Chemistry Sodium (137 - 145 mmol/L) 137 Potassium (3.5 - 5.1 mmol/L) 3.5 Chloride (98 - 107 mmol/L) 103 Carbon Dioxide (22 - 30 mmol/L) 18 L Anion Gap (5 - 16) 16 BUN (9 - 20 mg/dL) 23 H Creatinine (0.7 - 1.2 mg/dL) 0.9 Estimated GFR (>60 ml/min) > 60 BUN/Creatinine Ratio (7 - 25 %) 25.6 H Glucose (65 - 99 mg/dL) 115 H Calcium (8.4 - 10.2 mg/dL) 8.1 L Total Bilirubin (0.2 - 1.3 mg/dL) 1.4 H AST (17 - 59 U/L) 20 ALT (21 - 72 U/L) 26 Alkaline Phosphatase (< 127 U/L) 149 H Troponin I (<0.11 ng/ml) 0.09 Total Protein (6.3 - 8.2 g/dL) 6.5 Albumin (3.5 - 5.0 g/dL) 3.5 Globulin (1.9 - 4.2 gm/dL) 3.0 Albumin/Globulin Ratio (1.1 - 2.2 %) 1.2 Lipase (23 - 300 U/L) 23 Hematology CBC w Diff NO MAN DIFF REQ WBC (4.8 - 10.8 /CUMM) 6.5 RBC (4.70 - 6.10 /CUMM) 4.25 L Hgb (14.0 - 18.0 G/DL) 14.1 Hct (42 - 52 %) 41.0 L MCV (80.0 - 94.0 FL) 96.4 H MCH (27.0 - 31.0 PG) 33.3 H MCHC (33.0 - 37.0 G/DL) 34.5 RDW (11.5 - 14.5 %) 13.1 Plt Count (130 - 400 /CUMM) 154 MPV (7.4 - 10.4 FL) 7.3 L Gran % (42.2 - 75.2 %) 91.6 H Lymphocytes % (20.5 - 51.1 %) 7.3 L Monocytes % (1.7 - 9.3 %) 0.9 L Eosinophils % (0 - 5 %) 0.1 Basophils % (0.0 - 2.0 %) 0.1 Absolute Granulocytes (1.4 - 6.5 /CUMM) 6.0 Absolute Lymphocytes (1.2 - 3.4 /CUMM) 0.5 L Absolute Monocytes (0.10 - 0.60 /CUMM) 0.1 Absolute Eosinophils (0.0 - 0.7 /CUMM) 0 Absolute Basophils (0.0 - 0.2 /CUMM) 0 Diagnostic Data EKG Results Atrial fibrillation; left bundle branch block CXR Results FINDINGS: The examination is very limited. The entire left lower lobe is excluded from the [id number]. The cardiac silhouette is probably enlarged. The inferior aspect of the cardiac silhouette is not visualized. A dual-lead pacemaker is positioned over the left upper and lateral chest. Leads are not completely visualized. There is prominence of the upper mediastinum, possibly related to positioning and overlying vascular structures. The visualized portions of the lungs appear normally aerated. There is no right pleural effusion. A left pleural effusion cannot be excluded. IMPRESSION: Extremely technically limited examination. Recommend repeat evaluation. Other Results Abdominal/pelvic CT: IMPRESSION: 1. Limited noncontrast study. The study is also significantly limited by patient arm positioning over the upper abdomen. The entire upper abdomen demonstrates extensive streak artifact related to positioning. 2. Scattered hypodense lesions throughout the liver, partially seen. These may represent cysts. These are not well characterized on the current study. 3. Bilateral moderate perinephric stranding without associated obstruction. 4. Osteopenia with multiple compression fractures involving the lower thoracic and lumbar spine. The most severe fracture involving the L2 vertebral body appears similar to the CT of the lumbar spine from 05/09/2014. Recommend interventional radiology consultation for the evaluation of kyphoplasty if there are ongoing symptoms. 5. Indeterminant left adrenal mass. This could be further evaluated with dedicated CT with adrenal protocol. Assessment/Plan Assessment/Plan Assessment: 1. Mildly elevated troponin; suggestive of demand ischemia 2. Sepsis of urologic origin with gram-negative aren bacteremia 3. Recent TAVR; multiple coronary stents; and permanent pacemaker 4. Paroxysmal atrial fibrillation-status post cardioversion-back in atrial for ablation at the present time. 5. Left adrenal mass 6. Multiple compression fractures Recommendation: -Continue to trend troponin until decreasing. -Monitor on telemetry for now -Continue Eliquis and other cardiac meds. Amlodipine and lisinopril on hold for now due to low blood pressure. -Encourage p.o. fluid intake -Echocardiogram to be reviewed when available -Continue antibiotics pending cultures and sensitivities -Obtain copies of recent records from [facility] with respect to procedures performed -Obtain last ECG from [facility] -Further plans after the above reviewed. Consult Acknowledgment - Thank you for your consult request.
--- NOTE | 2017-09-05 14:10 | RADIOLOGY REPORT ---
EXAMINATION: XR PORTABLE CHEST CLINICAL INFORMATION: Fever, chest pain, cough COMPARISON: 09/04/2017 TECHNIQUE: Portable frontal view of the chest was obtained. FINDINGS: Study remains limited secondary to technical factors and lordotic positioning. A dual-lead pacemaker projects over the left upper chest. The leads appear normally positioned. The inferior costophrenic angles are excluded from the [id number]. There is complete obscuration of the left hemidiaphragm and increased density in the retrocardiac region suspicious for pneumonia with a small to moderate associated pleural effusion. The lungs are otherwise clear. No definite right pleural effusion. IMPRESSION: Left lower lobe pneumonia with moderate associated effusion.
[2017-09-05 14:15] VITALS: BP 118/64
--- NOTE | 2017-09-05 15:41 | ECHOCARDIOGRAM REPORT ---
ANN OCHOA Age: 77 : 1940 Gender: M Exam Date: 09/05/2017 09:53 Exam Location: 1 [address] Ht (in): 75 Wt (lb): 250 BSA: 2.48 BP: 116 / 70 Ordering Physician: Karen Linda MD Referring Physician: Terri Matson MD Technologist: Dayanara Pizarro [facility] Room Number: 177 Indications: AFIB/FLUTTER Rhythm: Atrial fibrillation Technical Quality: Fair FINDINGS Left Ventricle Normal size left ventricle. Left ventricular wall thickness moderately increased. Normal left ventricular ejection fraction estimated at 55-60%. Abnormal septal motion consistent with left bundle branch block. Right Ventricle Right ventricle at upper limits of normal. Right Atrium Normal right atrial size. Left Atrium Moderate left atrial dilatation. Mitral Valve Mitral valve thickened. Mild mitral regurgitation. Aortic Valve Normally functioning prosthetic aortic valve. Prosthetic aortic valve. Trace prosthetic aortic valve regurgitation. Periprosthetic regurgitation of the aortic valve. Tricuspid Valve Tricuspid valve not well visualized, grossly normal. Mild tricuspid regurgitation. Right ventricular systolic pressure estimated at 36 mmHg. Pulmonic Valve Pulmonic valve not well visualized, grossly normal. Trace pulmonic regurgitation. Pericardium No pericardial effusion. Great Vessels Aortic root and proximal ascending aorta not well visualized, grossly normal. CONCLUSIONS 1. A normally functioning bioprosthetic aortic valve / TAVR is present. The peak gradient across the valve is 18 mmHg. Minimal periprosthetic aortic insufficiency is present. 2. Mitral leaflet thickening is present with mild mitral insufficiency and moderate left atrial enlargement. 3. There is no pericardial fluid present. 4. The left ventricular chamber size is normall with mild to moderate concentric hypertrophy and a normal ejection fraction . Abnormal septal motion is present which is predominantly due to bundle branch block. There appears to be mild hypokinesia of the distal septum. 5. The right heart chamber are upper normal in size with mild tricuspid insufficiency. minimal pulmonic insufficiency and no significant pulmonary hypertension. 6. Pacemaker wires are present in the right heart chambers. Terri Matson M.D. (Electronically Signed) Final Date: 05 September 2017 15:40 MEASUREMENTS (Male / Female) Normal Values 2D ECHO LV Diastolic Diameter PLAX 4.4 cm 4.2 - 5.9 / 3.9 - 5.3 cm LV Systolic Diameter PLAX 3.0 cm 2.1 - 4.0 cm LV Fractional Shortening PLAX 31.8 % 25 - 46 % LV Ejection Fraction 2D Teich 60.1 % IVS Diastolic Thickness 1.6 cm LVPW Diastolic Thickness 1.6 cm LV Relative Wall Thickness 0.7 RV Internal Dim ED PLAX 3.4 cm 1.9 - 3.8 cm LVOT Diameter 1.9 cm Aortic Root Diameter 3.8 cm LA Systolic Diameter LX 5.1 cm 3.0 - 4.0 / 2.7 - 3.8 cm LA Volume 60.0 cm 18 - 58 / 22 - 52 cm Ascending Aorta Diameter 3.7 cm DOPPLER AV Peak Velocity 211.0 cm/s AV Peak Gradient 17.8 mmHg AV Mean Velocity 143.0 cm/s AV Mean Gradient 10.0 mmHg AV Velocity Time Integral 38.3 cm LVOT Peak Velocity 107.0 cm/s LVOT Peak Gradient 4.6 mmHg LVOT Mean Velocity 73.2 cm/s LVOT Mean Gradient 3.0 mmHg LVOT Velocity Time Integral 18.1 cm LVOT Stroke Volume 51.3 cm AV Area Cont Eq vti 1.3 cm AV Area Cont Eq pk 1.4 cm MV Peak Velocity 145.0 cm/s MV Peak Gradient 8.4 mmHg MV Mean Velocity 69.0 cm/s MV Mean Gradient 3.0 mmHg Mitral E Point Velocity 134.0 cm/s MV PHT Velocity 153.0 cm/s MV Deceleration Boyd 675.0 cm/s MV Pressure Half Time 68.0 ms MV Area PHT 3.2 cm MV Deceleration Time 208.0 ms TR Peak Velocity 277.0 cm/s TR Peak Gradient 30.7 mmHg Right Atrial Pressure 5.0 mmHg Pulmonary Artery Systolic Pressu 35.7 mmHg Right Ventricular Systolic Press 35.7 mmHg PV Peak Velocity 98.1 cm/s PV Peak Gradient 3.8 mmHg PV Mean Velocity 68.4 cm/s PV Mean Gradient 2.0 mmHg PV Velocity Time Integral 17.2 cm LV E' Lateral Velocity 11.3 cm/s Mitral E to LV E' Lateral Ratio 11.9 LV E' Septal Velocity 8.4 cm/s Mitral E to LV E' Septal Ratio 16.0
[2017-09-05 22:13] VITALS: BP 128/58
[2017-09-06 06:53] VITALS: BP 112/64
--- NOTE | 2017-09-06 07:11 | PN- Housestaff ---
Vandana CRUZ,[facility] 09/06/17 0710: Subjective Follow-up For: Urosepsis Elevated troponins Tele-Events Since Last Visit: Shar with HR 80-99. Subjective: Patient seen and examined at bedside. Reports feeling better this morning. His breathing is improved. Offers no complaints. Review of Systems Constitutional: Reports: no symptoms. Objective Last 24 Hrs of Vital Signs/I&O Vital Signs Date Time Temp Pulse Resp B/P B/P Pulse O2 O2 Flow FiO2 Mean Ox Delivery Rate 09/06 0800 94 Nasal 3.5L Cannula 09/06 0753 93 Nasal 3.5L Cannula 09/06 0653 99.1 96 18 112/64 94 Nasal Cannula 09/06 0000 Nasal 3.5L Cannula 09/05 2213 98.9 94 20 128/58 93 Nasal 3.0L Cannula 09/05 2213 98.9 94 20 128/58 93 Nasal 3.0L Cannula 09/05 1855 94 Nasal 3.5L Cannula 09/05 1600 94 Nasal 3.5L Cannula 09/05 1415 97.1 99 18 118/64 95 Nasal Cannula 09/05 1241 101.0 09/05 1230 Nasal 4.0L Cannula Intake & Output 09/06 1600 /04 0800 04 0000 Intake Total 300 450 Output Total Balance 300 450 Intake, Oral 300 450 Number 0 Bowel Movements Patient 254 lb Weight Physical Exam General Appearance: Alert, Oriented X3, Cooperative, Mild Distress Skin: No Rashes, No Breakdown Skin Temp/Moisture Exam: Warm/Dry Sepsis Skin Exam (color): Normal for Ethnicity HEENT: Atraumatic Cardiovascular: Normal S1, Normal S2, No Murmurs, irregular Lungs: Normal Air Movement, bibasilar crackles Abdomen: Soft, No Tenderness Neurological: Normal Speech Extremities: trace lower extremity edema Last 24 Hrs of Lab/Todd Results Last 24 Hrs of Labs/Mics: Laboratory Tests 09/06/17 0645: Anion Gap 6, Estimated GFR > 60, BUN/Creatinine Ratio 26.7 H, Magnesium 1.8, CBC w Diff NO MAN DIFF REQ, RBC 3.69 L, MCV 97.5 H, MCH 33.6 H, MCHC 34.5, RDW 13.7, MPV 7.9, Gran % 80.7 H, Lymphocytes % 7.5 L, Monocytes % 10.5 H, Eosinophils % 1.1, Basophils % 0.2, Absolute Granulocytes 8.2 H, Absolute Lymphocytes 0.8 L, Absolute Monocytes 1.1 H, Absolute Eosinophils 0.1, Absolute Basophils 0 09/05/17 1648: Troponin I 0.74 *H Assessment/Plan Assessment: Mr. Villeda is a 77 y/o male with PMH of CAD s/p cardiac stents, s/p TAVR, asthma who was brought to the ED for evaluation of altered mental staus and exertional chest pain. Assessment: 1. Urosepsis 2. Pyelonephritis 3. Elevated Troponins - resolved 4. Lactic Acidosis - resolved 5. GNR Bacteremia 6. Left lower lobe pneumonia with moderate associated effusion. 7. History of Paroxysmal atrial fibrilliation 8. New Onset LBBB found in July 2017 9. History of pacemaker and s/p TAVR Plan: * Continue monitoring on telemetry for now. * Continue supplemental oxygen to maintain target oxygen saturations > 92%. Currently on 3.5L. Will wean off as tolerated. * His urine culture is growing pansensitive E.coli. * Will start him on IV Cefazolin 1g q8 and discontinue IV Ceftriaxone. * His troponins have trended down. * His echo shows normal LVEF, abnormal septal motion consistent with left bundle branch block and mild hypokinesia of the distal septum. * Continue Eliquis. Will hold his antihypertensives for now as his blood pressure is running on the low side. * Replete electrolytes as needed. * Can repeat CXR tomorrow * He would likely require KATIE at some point to r/o endocarditis. * Diet: Regular * DVT Prophylaxis: On Eliquis * Code: Full Code Problem List: 1. Bacteremia Pain Ratin Pain Location: none Pain Goal: Remain pain free Pain Plan: none Tomorrow's Labs & Rationales: CBC, BEP Ian Christianson 09/06/17 1106: Attending MD Review Statement Attending Statement Attending MD Statement: examined this patient, discuss w/resident/PA/AEROSPACE ENGINEER, agreed w/resident/PA/AEROSPACE ENGINEER, discussed with family, reviewed EMR data (avail), discussed with nursing, discussed with case mgmt, reviewed images, amended to note Attending Assessment/Plan: Patient seen and examined. 77-year-old male with multiple medical problems including coronary artery disease, TAVR on Eliquis, hypertension and hyperlipidemia who was brought in by the family for weakness and confusion. Sepsis 2/2 UTI with bacteremia on iv ceftriaxone , follow final C/S. Hypotension with improvement: Norvasc and YEFRI inhibitor and metoprolol are on hold. resume as able. H/O CAD with possible type 2 VT ACS ruled out. He is on the aspirin, statin, hold b diamond. afib rate uncontrolled on ambulation, follow cardiology. A/c as per cardiology. gi/dvt prophylaxis full code.
[2017-09-06 08:09] LABS: ABSOLUTE BASOPHIL COUNT 0 /CUMM (0.0-0.2); ABSOLUTE EOSINOPHIL COUNT 0.1 /CUMM (0.0-0.7); ABSOLUTE GRANULOCYTE CT 8.2 /CUMM (1.4-6.5); ABSOLUTE LYMPH COUNT 0.8 /CUMM (1.2-3.4); ABSOLUTE MONOCYTE COUNT 1.1 /CUMM (0.10-0.60); BASOPHIL % 0.2 % (0.0-2.0); EOSINOPHIL % 1.1 % (0-5); GRANULOCYTE % 80.7 % (42.2-75.2); HEMATOCRIT 35.9 % (42-52); MEAN CORPUSCULAR HGB 33.6 PG (27.0-31.0); MEAN CORPUSCULAR HGB CONC 34.5 G/DL (33.0-37.0); MEAN CORPUSCULAR VOLUME 97.5 FL (80.0-94.0); MEAN PLATELET VOLUME 7.9 FL (7.4-10.4); PLATELET COUNT 151 /CUMM (130-400); RBC DISTRIBUTION WIDTH 13.7 % (11.5-14.5); RED BLOOD CELL CT 3.69 /CUMM (4.70-6.10); WHITE BLOOD CELL COUNT 10.1 /CUMM (4.8-10.8)
--- NOTE | 2017-09-06 09:51 | PN- Cardiology ---
Subjective Subjective: The patient reports that he is feeling better. No further chest pain. He notes that he had several days of sharp right-sided chest pain last week. No palpitations. No diaphoresis. No lightheadedness or dizziness. No shortness of breath. Objective Vital Signs and I&Os Vital Signs Date Time Temp Pulse Resp B/P B/P Pulse O2 O2 Flow FiO2 Mean Ox Delivery Rate 09/06 0800 94 Nasal 3.5L Cannula 09/06 0753 93 Nasal 3.5L Cannula 09/06 0653 99.1 96 18 112/64 94 Nasal Cannula 09/06 0000 Nasal 3.5L Cannula 09/05 2213 98.9 94 20 128/58 93 Nasal 3.0L Cannula 09/05 2213 98.9 94 20 128/58 93 Nasal 3.0L Cannula 09/05 1855 94 Nasal 3.5L Cannula 09/05 1600 94 Nasal 3.5L Cannula 09/05 1415 97.1 99 18 118/64 95 Nasal Cannula 09/05 1241 101.0 09/05 1230 Nasal 4.0L Cannula Intake & Output 09/06 1600 09/06 0800 09/06 0000 09/05 1600 09/05 0800 09/05 0000 Intake Total 300 281 734 4683 250 Output Total Balance 300 226 132 9751 250 Intake, IV 1000 250 Intake, Oral 300 450 500 Number 0 Bowel Movements Patient 254 lb 255 lb Weight Weight Bed scale Measurement Method Physical Exam: Gen: NAD HEENT: normal Lungs: clear to auscultation, normal resp. effort Heart: RRR, S1, S2, 2 out of 6 systolic murmur Abdomen: Soft, nontender, no masses Extremities: Trace edema Neuro: Alert and oriented x 3, cranial nerves intact Current Medications: Current Medications Sig/Holley Start time Last Medication Dose Route Stop Time Status Admin Acetaminophen 650 MG Q4P PRN 09/05 1245 AC 09/05 PO 1241 Albuterol Sulfate 3 ML BID 09/05 2100 AC 09/06 INH 0750 Apixaban 5 MG BID 09/05 1215 AC 09/06 PO 0812 Budesonide/ 2 PUF BID 09/05 2100 AC 09/06 Formoterol Fumarate INH 0813 Ceftriaxone Sodium 1,000 MG 2300 09/05 2300 AC 09/05 IV 2258 Clopidogrel Bisulfate 75 MG DAILY 09/05 0900 AC 09/06 PO 0812 Clotrimazole 1 MITALI BID 09/05 0900 AC 09/06 TOP 0812 Escitalopram Oxalate 20 MG DAILY 09/05 0900 AC 09/06 PO 0812 Melatonin 3 MG QPM 09/05 0200 AC 09/05 PO 2110 Potassium Chloride 40 MEQ ONCE ONE 09/06 0815 DC PO 09/06 0816 Pravastatin Sodium 40 MG 1700 09/05 1700 AC 09/05 PO 1727 Triamcinolone 1 MITALI BID 09/05 0900 AC 09/06 Acetonide TOP 0812 Results Last 48 Hrs of Labs/Mics: Laboratory Tests 09/06/17 0645: Anion Gap 6, Estimated GFR > 60, BUN/Creatinine Ratio 26.7 H, Magnesium 1.8, CBC w Diff NO MAN DIFF REQ, RBC 3.69 L, MCV 97.5 H, MCH 33.6 H, MCHC 34.5, RDW 13.7, MPV 7.9, Gran % 80.7 H, Lymphocytes % 7.5 L, Monocytes % 10.5 H, Eosinophils % 1.1, Basophils % 0.2, Absolute Granulocytes 8.2 H, Absolute Lymphocytes 0.8 L, Absolute Monocytes 1.1 H, Absolute Eosinophils 0.1, Absolute Basophils 0 09/05/17 1648: Troponin I 0.74 *H 09/05/17 0935: Anion Gap 10, Estimated GFR > 60, BUN/Creatinine Ratio 30.0 H, Troponin I 0.82 *H 09/05/17 0935: Sodium Cancelled, Potassium Cancelled, Chloride Cancelled, Carbon Dioxide Cancelled, Anion Gap Cancelled, BUN Cancelled, Creatinine Cancelled, BUN/ Creatinine Ratio Cancelled, CBC w Diff MAN DIFF ORDERED, RBC 3.92 L, MCV 97.6 H, MCH 33.6 H, MCHC 34.5, RDW 13.5, MPV 7.3 L, Gran % 91.9 H, Lymphocytes % 2.7 L, Monocytes % 5.2, Eosinophils % 0.2, Basophils % 0, Absolute Granulocytes 13.2 H, Segmented Neutrophils 86 H, Band Neutrophils 7 H, Absolute Lymphocytes 0.4 L, Lymphocytes 3 L, Monocytes 4, Absolute Monocytes 0.7 H, Absolute Eosinophils 0, Absolute Basophils 0, Platelet Estimate VERIFIED BY SMEAR, Normocytic RBCs VERIFIED, Normochromic RBCs VERIFIED 09/05/17 0251: Troponin I 0.58 *H 09/05/17 0117: Lactic Acid 1.3 09/04/17 2310: Urine Color YEL, Urine Clarity HAZY H, Urine pH 6.0, Ur Specific [place] 1.025, Urine Protein 30 H, Urine Ketones NEG, Urine Nitrite POS H, Urine Bilirubin NEG, Urine Urobilinogen 1.0, Ur Leukocyte Esterase MOD H, Ur Microscopic SEDIMENT EXAMINED, Urine RBC 1-3, Urine WBC 50-75 H, Ur Epithelial Cells FEW, Urine Bacteria PACKD H, Urine Hemoglobin MOD H, Urine Glucose NEG 09/04/17 2138: Lactic Acid 3.3 H 09/04/170: Anion Gap 16, Estimated GFR > 60, BUN/Creatinine Ratio 25.6 H, Glucose 115 H, Calcium 8.1 L, Total Bilirubin 1.4 H, AST 20, ALT 26, Alkaline Phosphatase 149 H, Troponin I 0.09, Total Protein 6.5, Albumin 3.5, Globulin 3.0, Albumin/ Globulin Ratio 1.2, Lipase 23, CBC w Diff NO MAN DIFF REQ, RBC 4.25 L, MCV 96.4 H, MCH 33.3 H, MCHC 34.5, RDW 13.1, MPV 7.3 L, Gran % 91.6 H, Lymphocytes % 7.3 L, Monocytes % 0.9 L, Eosinophils % 0.1, Basophils % 0.1, Absolute Granulocytes 6.0, Absolute Lymphocytes 0.5 L, Absolute Monocytes 0.1, Absolute Eosinophils 0, Absolute Basophils 0 Recent Imaging Studies: Chest x-ray 09/05/17: Left lower lobe pneumonia with moderate associated effusion. CT scan of the abdomen and pelvis: 1. Limited noncontrast study. The study is also significantly limited by patient arm positioning over the upper abdomen. The entire upper abdomen demonstrates extensive streak artifact related to positioning. 2. Scattered hypodense lesions throughout the liver, partially seen. These may represent cysts. These are not well characterized on the current study. 3. Bilateral moderate perinephric stranding without associated obstruction. 4. Osteopenia with multiple compression fractures involving the lower thoracic and lumbar spine. The most severe fracture involving the L2 vertebral body appears similar to the CT of the lumbar spine from 05/09/2014. Recommend interventional radiology consultation for the evaluation of kyphoplasty if there are ongoing symptoms. 5. Indeterminant left adrenal mass. This could be further evaluated with dedicated CT with adrenal protocol. Echocardiogram 09/05/17: 1. A normally functioning bioprosthetic aortic valve / TAVR is present. The peak gradient across the valve is 18 mmHg. Minimal periprosthetic aortic insufficiency is present. 2. Mitral leaflet thickening is present with mild mitral insufficiency and moderate left atrial enlargement. 3. There is no pericardial fluid present. 4. The left ventricular chamber size is normall with mild to moderate concentric hypertrophy and a normal ejection fraction . Abnormal septal motion is present which is predominantly due to bundle branch block. There appears to be mild hypokinesia of the distal septum. 5. The right heart chamber are upper normal in size with mild tricuspid insufficiency. minimal pulmonic insufficiency and no significant pulmonary hypertension. 6. Pacemaker wires are present in the right heart chambers. Assessment/Plan Assessment/Plan Assessment: 1. Coronary artery disease, status post coronary stent placement 2 in June 2017 2. 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 Permanent pacemaker placed July 2017 4. New onset left bundle branch block noted in July 2017 5. Paroxysmal atrial fibrillation, currently in atrial fibrillation.. Sotalol was recently discontinued because of prolonged QT interval with left bundle branch block. Ventricular rate is currently normal off rate control medications. 6. Recent atypical chest pain, likely nonischemic 7. Gram-negative aren bacteremia, with possible urinary tract infection and possible pneumonia on chest x-ray 8. Hypokalemia Plan: * IV antibiotic therapy * Awaiting final identification and sensitivities of gram-negative aren bacteremia * Endocarditis is a concern given the recent TAVR and pacemaker placement. Would consult ID for recommendations. KATIE will likely be required at some point. * Continue Eliquis * Continue aspirin * Would supplement potassium to greater than 4.0 Continue telemetry? Yes
--- NOTE | 2017-09-06 13:41 | PN- Student ---
Subjective Subjective: Hospital Course: Colin Villeda is a 77 YOM who came into the ER two nights ago with a constellation of complaints including productive cough, fever, diaphoresis, dysuria, chest pain, and altered mental status. He was an unreliable historian, but his family was also present and filled in some of the details. The episode of chest pain happened while he was walking up some stairs to get to cardiac rehab, and it only lasted a couple of minutes. His family says he has been experiencing increasing levels of confusion over the last two weeks, and that he was at his worse that evening in the ER. In the hospital he was found to be septic, with a lactic acid of 3.3 and vitals that met the SIRS criteria. Urinalysis was positive for LE, Nitrates, WBC, Protein, Hemoglobin, and many gram negative rods. A chest x-ray showed a consolidation in the lower left lobe which was thought to be a possible pneumonia. Review of his prior medical records today from [facility] showed old X-ray records with similar findings. EKG showed afib with a left BBB, both of which were preexisting according to [facility] medical records. Serial troponins came back at 0.82 and 0.74, and an echo showed an EF of 55-60% with septal wall motion abnormalities also consistant with old records. An abdominal CT showed perinephric stranding, and a diagnosis of pyelonephritis was made. Patient was started on Rocephin at this point. This AM he is still slightly altered, giving only short replies and confused looks to questioning. He denies any fever/chills, dysuria, SOB, cough, chest pain, abdominal pain, or N/V. He does complain of right leg pain. Objective Objective: On physical exam, patient is somewhat confused and speaking in short sentances. His skin is pwd. Heart has a normal rate with an irregularly irregular rhythm with no appreciable MRGs. Lungs have diffuse wheezing but no crackles or evidence of consolodation. Abdomen was soft and NT w/ no rigidity or gaurding. Right leg was 2cm larger than the left with some erythema. Overnight Tele showed afib with rates between 80-99. His WBC was down to 10.1 from 14. T 99.1 HR 96 BP 112/64 RR 18 SpO2 94% 3.5L NC Intake & Output 09/06 1600 06/04 0800 09/06 0000 Intake Total 300 450 Output Total Balance 300 450 Intake, Oral 300 450 Number 0 Bowel Movements Patient 254 lb Weight Laboratory Tests 09/06 09/05 0645 1648 Chemistry Sodium (137 - 145 mmol/L) 136 L Potassium (3.5 - 5.1 mmol/L) 3.4 L Chloride (98 - 107 mmol/L) 107 Carbon Dioxide (22 - 30 mmol/L) 23 Anion Gap (5 - 16) 6 BUN (9 - 20 mg/dL) 16 Creatinine (0.7 - 1.2 mg/dL) 0.6 L Estimated GFR (>60 ml/min) > 60 BUN/Creatinine Ratio (7 - 25 %) 26.7 H Magnesium (1.6 - 2.3 mg/dL) 1.8 Troponin I (<0.11 ng/ml) 0.74 *H Hematology CBC w Diff NO MAN DIFF REQ WBC (4.8 - 10.8 /CUMM) 10.1 RBC (4.70 - 6.10 /CUMM) 3.69 L Hgb (14.0 - 18.0 G/DL) 12.4 L Hct (42 - 52 %) 35.9 L MCV (80.0 - 94.0 FL) 97.5 H MCH (27.0 - 31.0 PG) 33.6 H MCHC (33.0 - 37.0 G/DL) 34.5 RDW (11.5 - 14.5 %) 13.7 Plt Count (130 - 400 /CUMM) 151 MPV (7.4 - 10.4 FL) 7.9 Gran % (42.2 - 75.2 %) 80.7 H Lymphocytes % (20.5 - 51.1 %) 7.5 L Monocytes % (1.7 - 9.3 %) 10.5 H Eosinophils % (0 - 5 %) 1.1 Basophils % (0.0 - 2.0 %) 0.2 Absolute Granulocytes (1.4 - 6.5 /CUMM) 8.2 H Absolute Lymphocytes (1.2 - 3.4 /CUMM) 0.8 L Absolute Monocytes (0.10 - 0.60 /CUMM) 1.1 H Absolute Eosinophils (0.0 - 0.7 /CUMM) 0.1 Absolute Basophils (0.0 - 0.2 /CUMM) 0 Laboratory Tests 09/06/17 0645: Anion Gap 6, Estimated GFR > 60, BUN/Creatinine Ratio 26.7 H, Magnesium 1.8, CBC w Diff NO MAN DIFF REQ, RBC 3.69 L, MCV 97.5 H, MCH 33.6 H, MCHC 34.5, RDW 13.7, MPV 7.9, Gran % 80.7 H, Lymphocytes % 7.5 L, Monocytes % 10.5 H, Eosinophils % 1.1, Basophils % 0.2, Absolute Granulocytes 8.2 H, Absolute Lymphocytes 0.8 L, Absolute Monocytes 1.1 H, Absolute Eosinophils 0.1, Absolute Basophils 0 09/05/17 1648: Troponin I 0.74 *H Assessment/Plan Assessment: 77 YOm with a PMH of CAD w/ 4 stents, Pacemaker, TAVR, COPD/asthma, afib, and psoriasis with acute pyelonephritis and sepsis. Plan: - Continue Rocephin and fluid repletion as needed until pyelonephritis resolves. - Blood cultures to assess risk of endocarditis - Echocardiogram stress test once sepsis resolves - D/C [place] home med prior to discharge (common side-effects include UTI) - Doppler ultrasound of right leg - Diligent DVT prophylaxis
--- NOTE | 2017-09-06 13:47 | PN- Student ---
Subjective Subjective: Note made in error, please disregard. to go home. She is decidedly against dialysis, and her daughter supports this decision. Objective Objective: Patient's fluid status seems moderately improved today, with slightly less leg edema and lung crackles that only reach 2/[address]. Concerningly, her creatinine has been trending up, and today it is at 4.7 - which may actually be her baseline acoridng to old nephrology reports. Laboratory Tests 09/06 09/05 09/05 0645 1648 0935 Chemistry Sodium (137 - 145 mmol/L) 136 L 140 Potassium (3.5 - 5.1 mmol/L) 3.4 L 4.1 Chloride (98 - 107 mmol/L) 107 108 H Carbon Dioxide (22 - 30 mmol/L) 23 22 Anion Gap (5 - 16) 6 10 BUN (9 - 20 mg/dL) 16 24 H Creatinine (0.7 - 1.2 mg/dL) 0.6 L 0.8 Estimated GFR (>60 ml/min) > 60 > 60 BUN/Creatinine Ratio (7 - 25 %) 26.7 H 30.0 H Magnesium (1.6 - 2.3 mg/dL) 1.8 Troponin I (<0.11 ng/ml) 0.74 *H 0.82 *H Hematology CBC w Diff NO MAN DIFF REQ WBC (4.8 - 10.8 /CUMM) 10.1 RBC (4.70 - 6.10 /CUMM) 3.69 L Hgb (14.0 - 18.0 G/DL) 12.4 L Hct (42 - 52 %) 35.9 L MCV (80.0 - 94.0 FL) 97.5 H MCH (27.0 - 31.0 PG) 33.6 H MCHC (33.0 - 37.0 G/DL) 34.5 RDW (11.5 - 14.5 %) 13.7 Plt Count (130 - 400 /CUMM) 151 MPV (7.4 - 10.4 FL) 7.9 Gran % (42.2 - 75.2 %) 80.7 H Lymphocytes % (20.5 - 51.1 %) 7.5 L Monocytes % (1.7 - 9.3 %) 10.5 H Eosinophils % (0 - 5 %) 1.1 Basophils % (0.0 - 2.0 %) 0.2 Absolute Granulocytes (1.4 - 6.5 /CUMM) 8.2 H Absolute Lymphocytes (1.2 - 3.4 /CUMM) 0.8 L Absolute Monocytes (0.10 - 0.60 /CUMM) 1.1 H Absolute Eosinophils (0.0 - 0.7 /CUMM) 0.1 Absolute Basophils (0.0 - 0.2 /CUMM) 0 09/05 09/05 09/05 0935 0251 0117 Chemistry Sodium Cancelled Potassium Cancelled Chloride Cancelled Carbon Dioxide Cancelled Anion Gap Cancelled BUN Cancelled Creatinine Cancelled BUN/Creatinine Ratio Cancelled Lactic Acid (0.7 - 2.1 mmol/L) 1.3 Troponin I (<0.11 ng/ml) 0.58 *H Hematology CBC w Diff MAN DIFF ORDERED WBC (4.8 - 10.8 /CUMM) 14.4 H RBC (4.70 - 6.10 /CUMM) 3.92 L Hgb (14.0 - 18.0 G/DL) 13.2 L Hct (42 - 52 %) 38.3 L MCV (80.0 - 94.0 FL) 97.6 H MCH (27.0 - 31.0 PG) 33.6 H MCHC (33.0 - 37.0 G/DL) 34.5 RDW (11.5 - 14.5 %) 13.5 Plt Count (130 - 400 /CUMM) 143 MPV (7.4 - 10.4 FL) 7.3 L Gran % (42.2 - 75.2 %) 91.9 H Lymphocytes % (20.5 - 51.1 %) 2.7 L Monocytes % (1.7 - 9.3 %) 5.2 Eosinophils % (0 - 5 %) 0.2 Basophils % (0.0 - 2.0 %) 0 Absolute Granulocytes (1.4 - 6.5 /CUMM) 13.2 H Segmented Neutrophils (42.2 - 75.2 %) 86 H Band Neutrophils (0.0 - 5.0 %) 7 H Absolute Lymphocytes (1.2 - 3.4 /CUMM) 0.4 L Lymphocytes (20.5 - 51.1 %) 3 L Monocytes (1.7 - 9.3 %) 4 Absolute Monocytes (0.10 - 0.60 /CUMM) 0.7 H Absolute Eosinophils (0.0 - 0.7 /CUMM) 0 Absolute Basophils (0.0 - 0.2 /CUMM) 0 Platelet Estimate (ADEQUATE) VERIFIED BY SMEAR Normocytic RBCs VERIFIED Normochromic RBCs VERIFIED 09/04 Chemistry Lactic Acid (0.7 - 2.1 mmol/L) 3.3 H Urines Urine Color (YEL,AMB,STR) YEL Urine Clarity (CLEAR) HAZY H Urine pH (5.0 - 8.0) 6.0 Ur Specific [place] (1.001 - 1.035) 1.025 Urine Protein (NEG,<30 MG/DL) 30 H Urine Ketones (NEG) NEG Urine Nitrite (NEG) POS H Urine Bilirubin (NEG) NEG Urine Urobilinogen (0.1 - 1.0 EU/dl) 1.0 Ur Leukocyte Esterase (NEG) MOD H Ur Microscopic SEDIMENT EXAMINED Urine RBC (0 - 5 /HPF) 1-3 Urine WBC (0 - 2 /HPF) 50-75 H Ur Epithelial Cells (NONE,FEW) FEW Urine Bacteria (NEG/NONE) PACKD H Urine Hemoglobin (NEG) MOD H Urine Glucose (N MG/DL) NEG 09/04 2109 Chemistry Sodium (137 - 145 mmol/L) 137 Potassium (3.5 - 5.1 mmol/L) 3.5 Chloride (98 - 107 mmol/L) 103 Carbon Dioxide (22 - 30 mmol/L) 18 L Anion Gap (5 - 16) 16 BUN (9 - 20 mg/dL) 23 H Creatinine (0.7 - 1.2 mg/dL) 0.9 Estimated GFR (>60 ml/min) > 60 BUN/Creatinine Ratio (7 - 25 %) 25.6 H Glucose (65 - 99 mg/dL) 115 H Calcium (8.4 - 10.2 mg/dL) 8.1 L Total Bilirubin (0.2 - 1.3 mg/dL) 1.4 H AST (17 - 59 U/L) 20 ALT (21 - 72 U/L) 26 Alkaline Phosphatase (< 127 U/L) 149 H Troponin I (<0.11 ng/ml) 0.09 Total Protein (6.3 - 8.2 g/dL) 6.5 Albumin (3.5 - 5.0 g/dL) 3.5 Globulin (1.9 - 4.2 gm/dL) 3.0 Albumin/Globulin Ratio (1.1 - 2.2 %) 1.2 Lipase (23 - 300 U/L) 23 Hematology CBC w Diff NO MAN DIFF REQ WBC (4.8 - 10.8 /CUMM) 6.5 RBC (4.70 - 6.10 /CUMM) 4.25 L Hgb (14.0 - 18.0 G/DL) 14.1 Hct (42 - 52 %) 41.0 L MCV (80.0 - 94.0 FL) 96.4 H MCH (27.0 - 31.0 PG) 33.3 H MCHC (33.0 - 37.0 G/DL) 34.5 RDW (11.5 - 14.5 %) 13.1 Plt Count (130 - 400 /CUMM) 154 MPV (7.4 - 10.4 FL) 7.3 L Gran % (42.2 - 75.2 %) 91.6 H Lymphocytes % (20.5 - 51.1 %) 7.3 L Monocytes % (1.7 - 9.3 %) 0.9 L Eosinophils % (0 - 5 %) 0.1 Basophils % (0.0 - 2.0 %) 0.1 Absolute Granulocytes (1.4 - 6.5 /CUMM) 6.0 Absolute Lymphocytes (1.2 - 3.4 /CUMM) 0.5 L Absolute Monocytes (0.10 - 0.60 /CUMM) 0.1 Absolute Eosinophils (0.0 - 0.7 /CUMM) 0 Absolute Basophils (0.0 - 0.2 /CUMM) 0 Vital Signs Date Time Temp Pulse Resp B/P B/P Pulse O2 O2 Flow FiO2 Mean Ox Delivery Rate 09/06 0800 94 Nasal 3.5L Cannula 09/06 0753 93 Nasal 3.5L Cannula 09/06 0653 99.1 96 18 112/64 94 Nasal Cannula 09/06 0000 Nasal 3.5L Cannula 09/05 2213 98.9 94 20 128/58 93 Nasal 3.0L Cannula 09/05 2213 98.9 94 20 128/58 93 Nasal 3.0L Cannula 09/05 1855 94 Nasal 3.5L Cannula 09/05 1600 94 Nasal 3.5L Cannula 09/05 1415 97.1 99 18 118/64 95 Nasal Cannula Intake & Output 09/06 1600 09/06 0800 09/06 0000 Intake Total 300 450 Output Total Balance 300 450 Intake, Oral 300 450 Number 0 Bowel Movements Patient 254 lb Weight
[2017-09-06 15:29] VITALS: BP 130/80
[2017-09-06 21:09] VITALS: BP 128/74
[2017-09-06 21:17] VITALS: BP 128/74
[2017-09-07 06:57] VITALS: BP 134/68
[2017-09-07 07:52] LABS: ABSOLUTE BASOPHIL COUNT 0 /CUMM (0.0-0.2); ABSOLUTE EOSINOPHIL COUNT 0.1 /CUMM (0.0-0.7); ABSOLUTE GRANULOCYTE CT 5.7 /CUMM (1.4-6.5); ABSOLUTE LYMPH COUNT 0.7 /CUMM (1.2-3.4); ABSOLUTE MONOCYTE COUNT 0.7 /CUMM (0.10-0.60); BASOPHIL % 0.3 % (0.0-2.0); EOSINOPHIL % 1.3 % (0-5); GRANULOCYTE % 78.2 % (42.2-75.2); MEAN CORPUSCULAR HGB 33.4 PG (27.0-31.0); MEAN CORPUSCULAR HGB CONC 34.1 G/DL (33.0-37.0); MEAN CORPUSCULAR VOLUME 98.2 FL (80.0-94.0); MEAN PLATELET VOLUME 7.7 FL (7.4-10.4); PLATELET COUNT 173 /CUMM (130-400); RBC DISTRIBUTION WIDTH 13.6 % (11.5-14.5); RED BLOOD CELL CT 3.77 /CUMM (4.70-6.10); WHITE BLOOD CELL COUNT 7.4 /CUMM (4.8-10.8)
--- NOTE | 2017-09-07 08:40 | PN- Housestaff ---
Monica CRUZ,Cassia 09/07/17 0840: Subjective Follow-up For: Urosepsis Elevated troponins-trending down Tele-Events Since Last Visit: A. fib, heart rate 50, NE 0.2 with BBB Subjective: Patient is seen and examined at bedside, he denies any complaints, blood culture showed GNR, he remains in A. fib identification and sensitivity are pending, no overnight events Review of Systems Constitutional: Denies: no symptoms. Cardiovascular: Denies: no symptoms. Respiratory: Denies: no symptoms. Gastrointestinal: Denies: no symptoms. Genitourinary: Denies: no symptoms. Objective Last 24 Hrs of Vital Signs/I&O Vital Signs Date Time Temp Pulse Resp B/P B/P Pulse O2 O2 Flow FiO2 Mean Ox Delivery Rate 09/07 0829 94 Room Air Room Air 09/07 0800 95 Room Air 09/07 0657 98.1 90 20 134/68 97 Room Air 09/06 2339 Room Air 09/06 2117 125 128/74 09/06 2109 98.7 102 24 128/74 94 Nasal Cannula 09/06 1945 97 Nasal 3.5L Cannula 09/06 1600 94 Nasal 3.5L Cannula 09/06 1529 97.6 98 20 130/80 95 Intake & Output / 1600 06/05 0800 06/05 0000 Intake Total 240 Output Total 1300 200 Balance -1060 -200 Intake, Oral 240 Number 0 Bowel Movements Output, Urine 1300 200 Patient 265 lb Weight Physical Exam General Appearance: Alert, Oriented X3, Cooperative, No Acute Distress HEENT: Atraumatic, PERRLA, EOMI, Mucous Membr. moist/pink Neck: Supple, No JVD Cardiovascular: Normal S1, Normal S2 Lungs: Clear to Auscultation, Normal Air Movement Abdomen: Normal Bowel Sounds, Soft, No Tenderness Neurological: Normal Speech, Strength at 5/5 X4 Ext, Normal Tone, Sensation Intact Extremities: 2+ pitting edema in both LE Assessment/Plan Assessment: 77 y/o male with PMH of CAD s/p cardiac stents, s/p TAVR, asthma who was brought to the ED for evaluation of altered mental staus and exertional chest pain. Assessment: 1. Urosepsisboth urine culture and blood culture grew E. coli 2. Pyelonephritis 3. Elevated Troponins - resolved 4. Lactic Acidosis - resolved 5. E. coli bacteremia 6. Left lower lobe pneumonia with moderate associated effusion. 7. History of Paroxysmal atrial fibrilliation S/P pacemakert in 2018 8. New Onset LBBB found in July 2017 9. History of pacemaker and s/p TAVR 10.. Accidentally discovered indeterminant left adrenal mass. This could be further evaluated with dedicated CT with adrenal protocol. Plan: * Continue monitoring on telemetry for now. * Continue supplemental oxygen to maintain target oxygen saturations > 92%. Currently on 3.5L. Will wean off as tolerated. * His urine culture is growing pansensitive E.coli. * DC ceftriaxone * Start IV ampicillin 2 g q. 8 as per ID recommendation * His troponins have trended down. * His echo shows normal LVEF, abnormal septal motion consistent with left bundle branch block and mild hypokinesia of the distal septum. * Continue Eliquis. Will hold his antihypertensives for now as his blood pressure is running on the low side. * Replete electrolytes as needed. * Repeat blood culture * Patient will need further investigation regarding his left adrenal mass * ID consult appreciated * He would likely require KATIE at some point to r/o endocarditis. * Diet: Regular * DVT Prophylaxis: On Eliquis * Code: Full Code Problem List: 1. Bacteremia 2. UTI (urinary tract infection) Pain Ratin Pain Location: N/A Pain Goal: Remain pain free Pain Plan: [facility] Labs & Rationales: CBC BEP Ian Christianson 09/07/17 1011: Attending MD Review Statement Attending Statement Attending MD Statement: examined this patient, discuss w/resident/PA/PATIENT ACCESS ASSOCIATE, agreed w/resident/PA/PATIENT ACCESS ASSOCIATE, discussed with family, reviewed EMR data (avail), discussed with nursing, discussed with case mgmt, reviewed images, amended to note Attending Assessment/Plan: Patient seen and examined. 77-year-old male with multiple medical problems including coronary artery disease, TAVR on Eliquis, hypertension and hyperlipidemia who was brought in by the family for weakness and confusion. Sepsis 2/2 UTI with bacteremia rule out endocarditis with recent histrory of instrumentation on iv ceftriaxone , follow final C/S. ID consult. Hypotension with improvement: Norvasc and YEFRI inhibitor and metoprolol are on hold. resume as able. H/O CAD with possible type 2 ID ACS ruled out. He is on the plavix, statin, held b diamond. afib rate uncontrolled on ambulation, follow cardiology. A/c as per cardiology. gi/dvt prophylaxis full code.
--- NOTE | 2017-09-07 09:45 | PN- Cardiology ---
Subjective Subjective: Feeling better. No chest pain. No palpitations. No diaphoresis. No nausea or vomiting. No lightheadedness or dizziness. He remains in atrial fibrillation with rate under control. Objective Vital Signs and I&Os Vital Signs Date Time Temp Pulse Resp B/P B/P Pulse O2 O2 Flow FiO2 Mean Ox Delivery Rate 09/07 0829 94 Room Air Room Air 09/07 0657 98.1 90 20 134/68 97 Room Air 09/06 2339 Room Air 09/06 2117 125 128/74 09/06 2109 98.7 102 24 128/74 94 Nasal Cannula 09/06 1945 97 Nasal 3.5L Cannula 09/06 1600 94 Nasal 3.5L Cannula 09/06 1529 97.6 98 20 130/80 95 Intake & Output 09/07 0800 09/07 0000 09/06 1600 09/06 0800 09/06 0000 Intake Total 240 750 300 450 Output Total 1300 200 400 Balance -1060 -200 350 300 450 Intake, IV 150 Intake, Oral 240 600 300 450 Number 0 0 Bowel Movements Output, Urine 1300 200 400 Patient 265 lb 254 lb Weight Physical Exam: Gen: The patient is in no acute distress HEENT: Normal nose, ears, and oropharynx. Pupils equal bilaterally. Conjunctiva normal. Neck: Supple with no JVD, no masses, and no thyromegaly Lungs: Clear to auscultation with normal respiratory effort Heart: RRR, S1, S2, 2/6 systolic murmur. No peripheral edema, 2+ pulses in the lower extremities bilaterally Abdomen: Soft, nontender, no masses. No hepatomegaly. No splenomegaly Extremities: No clubbing or cyanosis. Normal muscle strength in the upper and lower extremities Skin: Normal skin turgor with no skin ulcers or lesions noted. Neuro: Cranial nerves intact. Sensation intact Psych: Alert and oriented x 3 with appropriate affect Current Medications: Current Medications Sig/Holley Start time Last Medication Dose Route Stop Time Status Admin Acetaminophen 650 MG Q4P PRN 09/05 1245 AC 09/05 PO 1241 Albuterol Sulfate 3 ML BID 09/05 2100 AC 09/06 INH 1945 Apixaban 5 MG BID 09/05 1215 AC 09/07 PO 0822 Budesonide/ 2 PUF BID 09/05 2099 AC 09/07 Formoterol Fumarate INH 0825 Cefazolin Sodium 1,000 MG IQ8 09/06 1600 CAN IV Ceftriaxone Sodium 1,000 MG 2300 09/06 2300 AC 09/06 IV 2208 Ceftriaxone Sodium 1,000 MG 2300 09/05 2300 DC 09/05 IV 2258 Clopidogrel Bisulfate 75 MG DAILY 09/05 0900 AC 09/07 PO 0822 Clotrimazole 1 MITALI BID 09/05 0900 AC 09/07 TOP 0825 Escitalopram Oxalate 20 MG DAILY 09/05 0900 AC 09/07 PO 0822 Magnesium Sulfate 1 GM ONCE ONE 09/06 1115 DC 09/06 Dextrose/Water 100 ML IV 09/06 1514 1349 Melatonin 3 MG QPM 09/05 0200 AC 09/06 PO 2207 Pravastatin Sodium 40 MG 1700 09/05 1700 AC 09/06 PO 1606 Triamcinolone 1 MITALI BID 09/05 0900 AC 09/07 Acetonide TOP 0825 Results Last 48 Hrs of Labs/Mics: Laboratory Tests 09/07/17 0605: Anion Gap 9, Estimated GFR > 60, BUN/Creatinine Ratio 21.7, CBC w Diff NO MAN DIFF REQ, RBC 3.77 L, MCV 98.2 H, MCH 33.4 H, MCHC 34.1, RDW 13.6, MPV 7.7, Gran % 78.2 H, Lymphocytes % 10.1 L, Monocytes % 10.1 H, Eosinophils % 1.3, Basophils % 0.3, Absolute Granulocytes 5.7, Absolute Lymphocytes 0.7 L, Absolute Monocytes 0.7 H, Absolute Eosinophils 0.1, Absolute Basophils 0 09/06/17 0645: Anion Gap 6, Estimated GFR > 60, BUN/Creatinine Ratio 26.7 H, Magnesium 1.8, CBC w Diff NO MAN DIFF REQ, RBC 3.69 L, MCV 97.5 H, MCH 33.6 H, MCHC 34.5, RDW 13.7, MPV 7.9, Gran % 80.7 H, Lymphocytes % 7.5 L, Monocytes % 10.5 H, Eosinophils % 1.1, Basophils % 0.2, Absolute Granulocytes 8.2 H, Absolute Lymphocytes 0.8 L, Absolute Monocytes 1.1 H, Absolute Eosinophils 0.1, Absolute Basophils 0 09/05/17 1648: Troponin I 0.74 *H Assessment/Plan Assessment/Plan Assessment: 1. Coronary artery disease, status post coronary stent placement 2 in June 2017 2. 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 Permanent pacemaker placed July 2017 4. New onset left bundle branch block noted in July 2017 5. Paroxysmal atrial fibrillation, currently in atrial fibrillation.. Sotalol was recently discontinued because of prolonged QT interval with left bundle branch block. Ventricular rate is currently normal off rate control medications. 6. Recent atypical chest pain, likely nonischemic 7. Gram-negative aren bacteremia, with possible urinary tract infection and possible pneumonia on chest x-ray 8. Hypokalemia 9. Mild troponin elevation, likely type II AK Plan: * IV antibiotic therapy * Awaiting final identification and sensitivities of gram-negative aren bacteremia * Endocarditis is a concern given the recent TAVR and pacemaker placement. Would consult ID for recommendations. KATIE will likely be required at some point. * Would order repeat blood culture * Continue Eliquis * Continue aspirin * Would supplement potassium to greater than 4.0 Continue telemetry? Yes
[2017-09-07 14:04] VITALS: BP 140/70
--- NOTE | 2017-09-07 14:06 | Cons- Infect Disease ---
General Information and HPI Consulting Request Date of Consult: 09/07/17 Requested By: Meghan CRUZ,Ian Reason for Consult: Positive blood and urine cultures for E. coli/rule out prosthetic valve endocarditis Source of Information: patient History of Present Illness: This is a 77-year-old man with a history of coronary artery disease, aortic stenosis, paroxysmal atrial fibrillation, maintained on Eliquis, COPD, psoriasis , status post aortic valve replacement, pacemaker placement and placement of 4 stents at [facility] 1 month prior to admission, admitted on September 04 after a near syncopal episode at home with several days of chills, body aches, dysuria, increased shortness of breath and weakness. On admission he was febrile to 103.3. Laboratory data revealed a white blood cell count of 6.5, BUN /creatinine 23 and 0.9, bilirubin 1.4, alkaline phosphatase 149, troponin 0.09. Urinalysis 1-3 RBC/50-75 WBCs. Chest x-ray, limited exam, revealed no acute process. CT of the abdomen and pelvis without IV contrast revealed scattered liver lesions, felt to represent cysts, bilateral moderate perinephric stranding without obstruction, osteopenia with multiple compression fractures involving the lower thoracic and lumbar spine, an indeterminate left adrenal mass and an enlarged prostate. He was begun on Ceftriaxone. His blood pressure did drop to 80/53 the next morning but has normalized since and he has defervesced. On September 05 blood cultures 2 and his urine culture were reported positive for gram- negative rods, all of which have been identified as E. coli. His troponins were also noted to be increased, felt to be secondary to demand ischemia. At present he feels well with no further urinary complaints, shortness of breath, body aches or chills. Allergies/Medications Allergies: Coded Allergies: No Known Allergies (09/04/17) Home Med List: Amlodipine Besylate 10 MG TABLET 1 TAB PO DAILY HTN (Reported) Apixaban (Eliquis) 5 MG TABLET 1 TAB PO BID s/p pacemaker/TAVR (Reported) Budesonide/Formoterol Fumarate (Symbicort 160-4.5 Mcg Inhaler) 160 MCG-4.5 MCG/ ACTUATION HFA.AER.AD 2 PUF INH BID Asthma/COPD (Reported) Calcium (Elemental-Fr Calcarb) (Calcium Carbonate) 600 MG CALCIUM (1,500 MG) TABLET 1 TAB PO BID supplements (Reported) Clopidogrel Bisulfate (Clopidogrel) 75 MG TABLET 1 TAB PO DAILY Blood thinner (Reported) Escitalopram Oxalate (Lexapro) 20 MG TABLET 1 TAB PO DAILY Depression/Anxiety (Reported) Lisinopril 20 MG TABLET 1 TAB PO DAILY Blood Pressure (Reported) Lotrisone (Lotrisone Cream) 1 %-0.05 % CREAM..G. 1 MITALI TOP QAMPM Skin ( Reported) apply to affected area(s) Melatonin 3 MG TABLET 1 TAB PO QPM Sleep (Reported) Metoprolol Succ XL (Toprol XL) 50 MG TAB.ER.24H 1 TAB PO DAILY rate control ( Reported) Mirabegron (Myrbetriq) 50 MG TAB.ER.24H 1 TAB PO DAILY bladder (Reported) Mometasone Furoate (Elocon) 0.1 % CREAM..G. 1 MITALI TOP BID Skin (Reported) apply to affected area(s) Multivitamin (Multivitamins) 1 EACH CAPSULE 1 TAB PO DAILY supplements ( Reported) [place]-3 Fatty Acids (Fish Oil Concentrate) 1,000 MG CAPSULE 1 CAP PO DAILY Supplement (Reported) Pravastatin Sodium 40 MG TABLET 1 TAB PO DAILY HLD/Heart (Reported) Ubidecarenone (Coenzyme Q10) 200 MG CAPSULE 1 TAB PO DAILY Heart Health ( Reported) Past History Travel History Traveled to [place] past 21 day No Medical History Blood Transfusion Hx: No Neurological: NONE EENT: NONE Cardiovascular: AFIB, CAD (4 stents), CARDIOVERSION Respiratory: COPD Gastrointestinal: NONE Hepatic: NONE Renal: NONE Musculoskeletal: NONE Psychiatric: NONE Endocrine: NONE Blood Disorders: NONE Cancer(s): NONE 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 Home Smoking Status: Former Smoker ETOH Use: denies use Illicit Drug Use: denies illicit drug use Review of Systems Review of Systems All Other Systems: Reviewed and Negative Exam & Diagnostic Data Last 24 Hrs of Vital Signs/I&O Vital Signs Date Time Temp Pulse Resp B/P B/P Pulse O2 O2 Flow FiO2 Mean Ox Delivery Rate 09/07 08 94 Room Air Room Air 09/07 0800 95 Room Air 09/07 0657 98.1 90 20 134/68 97 Room Air 09/06 2339 Room Air 09/06 2117 125 128/74 09/06 2109 98.7 102 24 128/74 94 Nasal Cannula 09/06 1945 97 Nasal 3.5L Cannula 09/06 1600 94 Nasal 3.5L Cannula 09/06 1529 97.6 98 20 130/80 95 Intake & Output 09/07 1600 09/07 0800 06 0000 Intake Total 240 Output Total 950 1300 200 Balance -950 -1060 -200 Intake, Oral 240 Number 0 Bowel Movements Output, Urine 950 1300 200 Patient 265 lb Weight Physical Exam Other Physical Findings: He is awake and alert in no acute distress. He is afebrile. Skin reveals no rash. HEENT exam is negative. Neck is supple with no adenopathy. Lungs bibasilar crackles. Heart regular rhythm with no murmur appreciated. Abdomen is soft, questionable tenderness in the left lower quadrant, with no guarding or rebound, with positive bowel sounds. Back no CVA tenderness. Extremities no cyanosis, clubbing or edema. Neuro is without focality. Last 24 Hours of Lab Results: Laboratory Tests 09/07 604 Chemistry Sodium (137 - 145 mmol/L) 141 Potassium (3.5 - 5.1 mmol/L) 3.9 Chloride (98 - 107 mmol/L) 107 Carbon Dioxide (22 - 30 mmol/L) 25 Anion Gap (5 - 16) 9 BUN (9 - 20 mg/dL) 13 Creatinine (0.7 - 1.2 mg/dL) 0.6 L Estimated GFR (>60 ml/min) > 60 BUN/Creatinine Ratio (7 - 25 %) 21.7 Hematology CBC w Diff NO MAN DIFF REQ WBC (4.8 - 10.8 /CUMM) 7.4 RBC (4.70 - 6.10 /CUMM) 3.77 L Hgb (14.0 - 18.0 G/DL) 12.6 L Hct (42 - 52 %) 37.0 L MCV (80.0 - 94.0 FL) 98.2 H MCH (27.0 - 31.0 PG) 33.4 H MCHC (33.0 - 37.0 G/DL) 34.1 RDW (11.5 - 14.5 %) 13.6 Plt Count (130 - 400 /CUMM) 173 MPV (7.4 - 10.4 FL) 7.7 Gran % (42.2 - 75.2 %) 78.2 H Lymphocytes % (20.5 - 51.1 %) 10.1 L Monocytes % (1.7 - 9.3 %) 10.1 H Eosinophils % (0 - 5 %) 1.3 Basophils % (0.0 - 2.0 %) 0.3 Absolute Granulocytes (1.4 - 6.5 /CUMM) 5.7 Absolute Lymphocytes (1.2 - 3.4 /CUMM) 0.7 L Absolute Monocytes (0.10 - 0.60 /CUMM) 0.7 H Absolute Eosinophils (0.0 - 0.7 /CUMM) 0.1 Absolute Basophils (0.0 - 0.2 /CUMM) 0 Last 24 Hours of Todd Results: Blood cultures 2 September 04 positive for E. coli sensitive to all antibiotics tested Urine culture September 04 greater than 100,000 colonies of E. coli sensitive to all antibiotics tested Blood cultures September 07 pending Diagnostic Data Recent Imaging Findings: Chest x-ray, limited exam, revealed no acute process. CT of the abdomen and pelvis without IV contrast revealed scattered liver lesions, felt to represent cysts, bilateral moderate perinephric stranding without obstruction, osteopenia with multiple compression fractures involving the lower thoracic and lumbar spine, an indeterminate left adrenal mass and an enlarged prostate Assessment/Plan Assessment/Plan Impression: This is a 77-year-old man with a history of paroxysmal atrial fibrillation, maintained on Eliquis, aortic stenosis, status post aortic valve replacement, pacemaker placement and placement of 4 stents at [facility] 1 month prior to admission, admitted on September 04 after a near syncopal episode at home with several days of chills, body aches, dysuria, increased shortness of breath and weakness, found to be febrile with a normal white blood cell count and pyuria, with his blood and urine cultures found to be positive for E. coli. His clinical picture is consistent with sepsis of urologic origin, given his complaints of dysuria, with pyuria and bilateral perinephric stranding on the CT scan. Feel that his rapid improvement and a clear source of infection makes endocarditis unlikely; therefore could defer on the KATIE, but, per Cardiology, he may require cardioversion, in which case a KATIE will need to be done. Other issues include his increased troponin, felt to represent demand ischemia, and the left adrenal mass, for which further evaluation can be pursued. Suggestion: 1. Await decision regarding possible cardioversion 2. Urology follow-up with his urologist 3. Further evaluation of his left adrenal mass per Medicine 4. Discontinue Ceftriaxone 5. Begin Ampicillin 2 g IV every 8 hours pending above Consult Acknowledgment - Thank you for your consult request.
[2017-09-07 21:42] VITALS: BP 140/78
[2017-09-08 06:50] VITALS: BP 144/72
--- NOTE | 2017-09-08 07:29 | PN- Housestaff ---
Monica CRUZ,Cassia 09/08/17 0728: Subjective Follow-up For: Urosepsis Tele-Events Since Last Visit: A. marley, heart rate 81, TN 0.2 with BBB Subjective: Patient was seen and examined at bedside, T-max 99.4, denies any complaints, no overnight events Review of Systems Constitutional: Denies: no symptoms. Cardiovascular: Denies: no symptoms. Respiratory: Denies: no symptoms. Gastrointestinal: Denies: no symptoms. Genitourinary: Denies: no symptoms. Objective Last 24 Hrs of Vital Signs/I&O Vital Signs Date Time Temp Pulse Resp B/P B/P Pulse O2 O2 Flow FiO2 Mean Ox Delivery Rate 09/08 0650 98.7 81 20 144/72 93 Room Air 09/08 0000 CPAP 09/07 2142 99.4 110 20 140/78 93 Room Air 09/07 2032 95 Nasal 2.0L Cannula 09/07 1404 98.0 86 20 140/70 98 Room Air 09/07 0829 94 Room Air Room Air Intake & Output 09/08 1600 09/08 0800 09/08 0000 Intake Total 220 500 Output Total 1150 800 Balance -930 -300 Intake, Oral 220 500 Output, Urine 1150 800 Patient 242 lb Weight Physical Exam General Appearance: Alert, Oriented X3, Cooperative, No Acute Distress HEENT: Atraumatic, PERRLA, EOMI, Mucous Membr. moist/pink Neck: Supple, No JVD Cardiovascular: Normal S1, Normal S2, No Murmurs Lungs: Clear to Auscultation Abdomen: Normal Bowel Sounds, Soft Neurological: Normal Speech, Strength at 5/5 X4 Ext, Normal Tone, Sensation Intact Extremities: No Clubbing, No Cyanosis, 1+ BILATERAL PITTING EDEMA Assessment/Plan Assessment: 77 y/o male with PMH of CAD s/p cardiac stents, s/p TAVR, asthma who was brought to the ED for evaluation of altered mental staus and exertional chest pain. Assessment: 1. Urosepsisboth urine culture and blood culture grew E. coli 2. Pyelonephritis 3. Elevated Troponins - resolved 4. Lactic Acidosis - resolved 5. E. coli bacteremia 6. Left lower lobe pneumonia with moderate associated effusion. 7. History of Paroxysmal atrial fibrilliation S/P pacemakert in 2018 8. New Onset LBBB found in July 2017 9. History of pacemaker and s/p TAVR 10.. Accidentally discovered indeterminant left adrenal mass. This could be further evaluated with dedicated CT with adrenal protocol. Plan: * Continue monitoring on telemetry for now. * Continue supplemental oxygen to maintain target oxygen saturations > 92%. Currently on 3.5L. Will wean off as tolerated. * His urine culture is growing pansensitive E.coli. * DC ceftriaxone * DC ampicillin Start Amoxicillin 500 mg po Q 8 hrs as per ID * His troponins have trended down. * His echo shows normal LVEF, abnormal septal motion consistent with left bundle branch block and mild hypokinesia of the distal septum. * Continue Eliquis. Will hold his antihypertensives for now as his blood pressure is running on the low side. * Replete electrolytes as needed. * F/U on Repeat blood culture * Patient will need further investigation regarding his left adrenal mass * Diet: Regular * DVT Prophylaxis: On Eliquis * Code: Full Code Problem List: 1. UTI (urinary tract infection) Pain Ratin Pain Location: N/A Pain Goal: Remain pain free Pain Plan: Pathway [employer] Labs & Rationales: CBC BEP Ian Christianson 09/08/17 0936: Attending MD Review Statement Attending Statement Attending MD Statement: examined this patient, discuss w/resident/PA/LAB SYSTEMS ANALYST, agreed w/resident/PA/LAB SYSTEMS ANALYST, discussed with family, reviewed EMR data (avail), discussed with nursing, discussed with case mgmt, reviewed images, amended to note Attending Assessment/Plan: 77-year-old male with multiple medical problems including coronary artery disease, TAVR on Eliquis, afib, hypertension and hyperlipidemia who was brought in by the family for weakness and confusion. Sepsis 2/2 UTI with bacteremia rule out endocarditis with recent histrory of instrumentation on iv unasyn now, ID appreciated, follow repeat blood cultures. Hypotension with improvement: Norvasc and YEFRI inhibitor and metoprolol are on hold. resume as able. H/O CAD with possible type 2 VT ACS ruled out. He is on the plavix, statin, held b diamond. afib rate uncontrolled on ambulation, follow cardiology. A/c as per cardiology. gi/dvt prophylaxis full code.
--- NOTE | 2017-09-08 07:59 | Patient Discharge Instructions ---
Discharge Instructions General Discharge Information You were seen/treated for: Urosepsis Special Instructions: 1please follow-up with your PCP in 1 week of discharge 2please follow-up with your hunter skin diver in 1 week of discharge 3please follow-up with your urologist in 1 week of discharge Diet Continue normal diet: No Recommended Diet: Heart Healthy Acute Coronary Syndrome Inclusion Criteria At DC or during hospital stay patient has or had the following: ACS DIAGNOSIS No Discharge Core Measures Meds if any: Prescribed or Continued at Discharge Meds if any: NOT Prescribed or Continued at Discharge Congestive Heart Failure Inclusion Criteria At DC or during hospital stay patient has or had the following: CHF DIAGNOSIS No Discharge Core Measures Meds if any: Prescribed or Continued at Discharge Meds if any: NOT Prescribed or Continued at Discharge Cerebrovascular accident Inclusion Criteria At DC or during hospital stay patient has or had the following: CVA/TIA Diagnosis No Discharge Core Measures Meds if any: Prescribed or Continued at Discharge Meds if any: NOT Prescribed or Continued at Discharge Venous thromboembolism Inclusion Criteria VTE Diagnosis No VTE Type NONE VTE Confirmed by (Test) NONE Discharge Core Measures - Per Current guidelines, there needs to be overlap - treatment for the first 5 days of Warfarin therapy. - If discharged on Warfarin prior to 5 days of - overlap therapy, the patient will need to be - assessed for post discharge needs including - *Post discharge parental anticoagulation - *Warfarin and/or parental anticoagulation education - *Follow up date to check INR post discharge At least 5 days overlap therapy as Inpatient No Meds if any: Prescribed or Continued at Discharge Note: Overlap Therapy is Warfarin and Anticoagulant Meds if any: NOT Prescribed or Continued at Discharge
[2017-09-08 08:01] LABS: ABSOLUTE BASOPHIL COUNT 0 /CUMM (0.0-0.2); ABSOLUTE EOSINOPHIL COUNT 0.1 /CUMM (0.0-0.7); ABSOLUTE GRANULOCYTE CT 5.2 /CUMM (1.4-6.5); ABSOLUTE MONOCYTE COUNT 0.7 /CUMM (0.10-0.60); BASOPHIL % 0.4 % (0.0-2.0); EOSINOPHIL % 1.8 % (0-5); HEMATOCRIT 38.1 % (42-52); MEAN CORPUSCULAR HGB 33.3 PG (27.0-31.0); MEAN CORPUSCULAR HGB CONC 34.2 G/DL (33.0-37.0); MEAN CORPUSCULAR VOLUME 97.6 FL (80.0-94.0); MEAN PLATELET VOLUME 7.7 FL (7.4-10.4); PLATELET COUNT 191 /CUMM (130-400); RBC DISTRIBUTION WIDTH 13.4 % (11.5-14.5); RED BLOOD CELL CT 3.91 /CUMM (4.70-6.10); WHITE BLOOD CELL COUNT 7.1 /CUMM (4.8-10.8)
--- NOTE | 2017-09-08 11:24 | PN- Infect Dx ---
Subjective Subjective: Afebrile without complaints Objective Last 24 Hrs of Vital Signs/I&O Vital Signs Date Time Temp Pulse Resp B/P B/P Pulse O2 O2 Flow FiO2 Mean Ox Delivery Rate 09/08 0821 94 Room Air Room Air 09/08 0650 98.7 81 20 144/72 93 Room Air 09/08 0000 CPAP 09/07 2142 99.4 110 20 140/78 93 Room Air 09/07 2032 95 Nasal 2.0L Cannula 09/07 1404 98.0 86 20 140/70 98 Room Air Intake & Output 09/08 1600 09/08 0800 09/08 0000 Intake Total 220 500 Output Total 1150 800 Balance -930 -300 Intake, Oral 220 500 Output, Urine 1150 800 Patient 242 lb Weight Physical Exam Other Physical Findings: He appears comfortable in no acute distress Lungs bibasilar crackles Heart irregular rhythm with no murmur Back no CVA tenderness Extremities no cyanosis, clubbing or edema Results Last 24 Hours of Lab Results: Laboratory Tests 09/08 622 Chemistry Sodium (137 - 145 mmol/L) 140 Potassium (3.5 - 5.1 mmol/L) 4.6 Chloride (98 - 107 mmol/L) 104 Carbon Dioxide (22 - 30 mmol/L) 29 Anion Gap (5 - 16) 6 BUN (9 - 20 mg/dL) 11 Creatinine (0.7 - 1.2 mg/dL) 0.7 Estimated GFR (>60 ml/min) > 60 BUN/Creatinine Ratio (7 - 25 %) 15.7 Hematology CBC w Diff NO MAN DIFF REQ WBC (4.8 - 10.8 /CUMM) 7.1 RBC (4.70 - 6.10 /CUMM) 3.91 L Hgb (14.0 - 18.0 G/DL) 13.0 L Hct (42 - 52 %) 38.1 L MCV (80.0 - 94.0 FL) 97.6 H MCH (27.0 - 31.0 PG) 33.3 H MCHC (33.0 - 37.0 G/DL) 34.2 RDW (11.5 - 14.5 %) 13.4 Plt Count (130 - 400 /CUMM) 191 MPV (7.4 - 10.4 FL) 7.7 Gran % (42.2 - 75.2 %) 73.0 Lymphocytes % (20.5 - 51.1 %) 14.3 L Monocytes % (1.7 - 9.3 %) 10.5 H Eosinophils % (0 - 5 %) 1.8 Basophils % (0.0 - 2.0 %) 0.4 Absolute Granulocytes (1.4 - 6.5 /CUMM) 5.2 Absolute Lymphocytes (1.2 - 3.4 /CUMM) 1.0 L Absolute Monocytes (0.10 - 0.60 /CUMM) 0.7 H Absolute Eosinophils (0.0 - 0.7 /CUMM) 0.1 Absolute Basophils (0.0 - 0.2 /CUMM) 0 Last 24 Hours of Todd Results: Blood cultures September 07 negative Assessment/Plan ID Impression: Stable, with temperatures and white blood cell count remaining normal, now on Ampicillin, Day 4 of treatment for E. coli sepsis of urologic origin, likely related to BPH, which was noted on his recent CT scan. Endocarditis seems unlikely given his rapid improvement and, if cardioversion is not planned here, do not feel that a KATIE needs to be pursued during this hospitalization. Suggestion: 1. Await decision regarding cardioversion 2. Further evaluation of his left adrenal mass per Medicine 3. Urology follow-up with his urologist in [place] 4. Continue Ampicillin but, if no plans for KATIE, would change to Amoxicillin 500 mg p.o. every 8 hours for 10 more days
--- NOTE | 2017-09-08 12:40 | PN- Cardiology ---
Subjective Subjective: stable and clinically improved. The patient and his family wish to hold off on any plans for cardioversion until the patient sees his regular shingle carrier Dr. Romano in 2 weeks. Objective Vital Signs and I&Os Vital Signs Date Time Temp Pulse Resp B/P B/P Pulse O2 O2 Flow FiO2 Mean Ox Delivery Rate 09/08 08 94 Room Air Room Air 09/08 0650 98.7 81 20 144/72 93 Room Air 09/08 0000 CPAP 09/07 214 99.4 110 20 140/78 93 Room Air 09/07 2032 95 Nasal 2.0L Cannula 09/07 140 98.0 86 20 140/70 98 Room Air Intake & Output 09/08 1600 09/08 0809/08 0000 09/07 1600 09/07 0000 Intake Total 220 500 730 240 Output Total 6526 798 2243 1300 200 Balance -930 -300 -520 -1060 -200 Intake, IV 50 Intake, Oral 220 500 680 240 Number 0 Bowel Movements Output, Urine 2684 519 7817 1300 200 Patient 242 lb 265 lb Weight Physical Exam: General Appearance: well developed/nourished, overweight white male, alert, awake, oriented Head: normal HEENT: Normal Neck: supple, JVP normal, carotid upstrokes normal bilaterally, no masses or thyromegaly Respiratory: chest non-tender, scattered rhonchi/wheeze bilateral Cardiovascular: regular rate/rhythm, normal S1, S2, 1-2/6 systolic murmur Abdomen: normal bowel sounds, soft, non-tender Extremities: normal inspection, no edema Vascular: Pulses are 2+ and equal bilaterally Neurologic: Grossly normal/nonfocal Current Medications: Current Medications Sig/Holley Start time Last Medication Dose Route Stop Time Status Admin Acetaminophen 650 MG Q4P PRN 09/05 1245 AC 09/05 PO 1241 Albuterol Sulfate 3 ML BID 09/05 2100 AC 09/08 INH 0819 Ampicillin 2,000 MG Q8 09/07 1433 AC 09/08 Sodium Chloride 100 ML IV 0534 Apixaban 5 MG BID 09/05 1215 AC 09/08 PO 0854 Budesonide/ 2 PUF BID 09/05 2100 AC 09/08 Formoterol Fumarate INH 0855 Ceftriaxone Sodium 1,000 MG 2300 09/06 2300 DC 09/06 IV 2208 Clopidogrel Bisulfate 75 MG DAILY 09/05 0900 AC 09/08 PO 0854 Clotrimazole 1 MITALI BID 09/05 0900 AC 09/08 TOP 0854 Escitalopram Oxalate 20 MG DAILY 09/05 0900 AC 09/08 PO 0854 Melatonin 3 MG QPM 09/05 0200 AC 09/07 PO 2147 Metoprolol Tartrate 12.5 MG BID 09/08 0941 AC PO Patient Medication 1 ED ONE ONE 09/07 1645 DC Teaching ED 09/07 1646 Pravastatin Sodium 40 MG 1700 09/05 1700 AC 09/07 PO 1748 Triamcinolone 1 MITALI BID 09/05 0900 AC 09/08 Acetonide TOP 0854 Results Last 48 Hrs of Labs/Mics: Laboratory Tests 09/08/17 0623: Anion Gap 6, Estimated GFR > 60, BUN/Creatinine Ratio 15.7, CBC w Diff NO MAN DIFF REQ, RBC 3.91 L, MCV 97.6 H, MCH 33.3 H, MCHC 34.2, RDW 13.4, MPV 7.7, Gran % 73.0, Lymphocytes % 14.3 L, Monocytes % 10.5 H, Eosinophils % 1.8, Basophils % 0.4, Absolute Granulocytes 5.2, Absolute Lymphocytes 1.0 L, Absolute Monocytes 0.7 H, Absolute Eosinophils 0.1, Absolute Basophils 0 09/07/17 06: Anion Gap 9, Estimated GFR > 60, BUN/Creatinine Ratio 21.7, CBC w Diff NO MAN DIFF REQ, RBC 3.77 L, MCV 98.2 H, MCH 33.4 H, MCHC 34.1, RDW 13.6, MPV 7.7, Gran % 78.2 H, Lymphocytes % 10.1 L, Monocytes % 10.1 H, Eosinophils % 1.3, Basophils % 0.3, Absolute Granulocytes 5.7, Absolute Lymphocytes 0.7 L, Absolute Monocytes 0.7 H, Absolute Eosinophils 0.1, Absolute Basophils 0 Assessment/Plan Assessment/Plan Assessment: 1. Coronary artery disease, status post coronary stent placement 2 in June 2017 2. 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 Permanent pacemaker placed July 2017 4. New onset left bundle branch block noted in July 2017 5. Paroxysmal atrial fibrillation, currently in atrial fibrillation.. Sotalol was recently discontinued because of prolonged QT interval with left bundle branch block. Ventricular rate is currently normal off rate control medications. 6. Recent atypical chest pain, likely nonischemic 7. Gram-negative aren bacteremia, with possible urinary tract infection and possible pneumonia on chest x-ray 8. Hypokalemia 9. Mild troponin elevation, likely type II CT Plan: * IV antibiotic therapy; transition to oral as soon as cleared by ID * Awaiting final identification and sensitivities of gram-negative aren bacteremia * ID suggests that there is no need for KATIE at present;; in addition, the patient and his family would prefer to hold off on KATIE/cardioversion until seen by regular shingle carrier in 10-14 days. Further discussions with Dr. Hunt in a.m. * follow-up input from ID pending * Continue Eliquis * Continue aspirin * Would supplement potassium to greater than 4.0 Continue telemetry? Yes
--- NOTE | 2017-09-08 12:51 | PN- Student ---
Subjective Subjective: Patient is without new complaint this AM. Denies any chest pain, dyspnea, abdominal pain, leg pain, or n/v/f/c. He reports walking two laps around the [place] last night with only minimal weakness. He is confused about why he might need a KATIE if there is low risk for endocarditis. When discussing his Afib, patient and his state he would prefer to follow up with his normal precision inspector in [place]. Objective Objective: Patient is resting comfortably in [facility]. He is alert and oriented speaking in full sentances. Skin is PWD with scattered echymoses and psoriatic lesions. Heart has a normal rate with an irregular rhythm but no appreciable MRG. Lungs are CTA bilaterally and legs are free of edema today. Overnight telemetry showed Afib with rates between 87 - 101. LBBB and scattered PVCs. QRS = 0.12 Blood culture was positive for the same ambrose-sensitive E. coli present in his urine cultures. Patient was transitioned to IV amoxacillin per the ID doctor. Laboratory Tests 09/08 06 Chemistry Sodium (137 - 145 mmol/L) 140 Potassium (3.5 - 5.1 mmol/L) 4.6 Chloride (98 - 107 mmol/L) 104 Carbon Dioxide (22 - 30 mmol/L) 29 Anion Gap (5 - 16) 6 BUN (9 - 20 mg/dL) 11 Creatinine (0.7 - 1.2 mg/dL) 0.7 Estimated GFR (>60 ml/min) > 60 BUN/Creatinine Ratio (7 - 25 %) 15.7 Hematology CBC w Diff NO MAN DIFF REQ WBC (4.8 - 10.8 /CUMM) 7.1 RBC (4.70 - 6.10 /CUMM) 3.91 L Hgb (14.0 - 18.0 G/DL) 13.0 L Hct (42 - 52 %) 38.1 L MCV (80.0 - 94.0 FL) 97.6 H MCH (27.0 - 31.0 PG) 33.3 H MCHC (33.0 - 37.0 G/DL) 34.2 RDW (11.5 - 14.5 %) 13.4 Plt Count (130 - 400 /CUMM) 191 MPV (7.4 - 10.4 FL) 7.7 Gran % (42.2 - 75.2 %) 73.0 Lymphocytes % (20.5 - 51.1 %) 14.3 L Monocytes % (1.7 - 9.3 %) 10.5 H Eosinophils % (0 - 5 %) 1.8 Basophils % (0.0 - 2.0 %) 0.4 Absolute Granulocytes (1.4 - 6.5 /CUMM) 5.2 Absolute Lymphocytes (1.2 - 3.4 /CUMM) 1.0 L Absolute Monocytes (0.10 - 0.60 /CUMM) 0.7 H Absolute Eosinophils (0.0 - 0.7 /CUMM) 0.1 Absolute Basophils (0.0 - 0.2 /CUMM) 0 Vital Signs Date Time Temp Pulse Resp B/P B/P Pulse O2 O2 Flow FiO2 Mean Ox Delivery Rate 09/08 0821 94 Room Air Room Air 09/08 0650 98.7 81 20 144/72 93 Room Air 09/08 0000 CPAP 09/07 2142 99.4 110 20 140/78 93 Room Air 09/07 2032 95 Nasal 2.0L Cannula 09/07 1404 98.0 86 20 140/70 98 Room Air Intake & Output 09/08 1600 06 0800 06 0000 Intake Total 220 500 Output Total 1150 800 Balance -930 -300 Intake, Oral 220 500 Output, Urine 1150 800 Patient 242 lb Weight Assessment/Plan Assessment: 77 YOM with a PMH of CAD w/ 3x stents, AFIB, TAVR, Pacemaker, Asthma, and Psoriasis who is on hospital day 4 for Pyelonephritis with Urosepsis and Bacteremia as well as chest pain and dyspnea. Plan - Troponins were only mildly and transiently elevated, likely due to demand ischemia, and no acute changes were seen on EKG or Echo. No further workup is indicated. - Sepsis has resolved; transition to oral amoxicillin prior to discharge. - Patient will likely need a KATIE prior to cardioversion to assess for the continued presence of an atrial thrombus which was seen on KATIE two months ago. Will leave this to the discretion of his normal precision inspector. - D/C mirabegon prior to discharge to avoid future UTIs and have him follow up with urology on an outpatient basis to assess bladder spasticity.
[2017-09-08 14:14] VITALS: BP 162/78
--- NOTE | 2017-09-08 16:13 | Discharge Summary ---
Visit Information Visit Dates Admission Date: 09/05/17 Discharge Date: 09/09/17 Hospital Course Course Attending Physician: Ian Christianson MD Primary Care Physician: Tommy Paul DO Hospital Course: Mr. Villeda is a 77-year-old man with a history of coronary artery disease, aortic stenosis, paroxysmal atrial fibrillation, maintained on Eliquis, COPD, psoriasis, status post aortic valve replacement, pacemaker placement and placement of 4 stents at [facility] 1 month prior to admission, admitted on September 04 after a near syncopal episode at home with several days of chills, body aches, dysuria, increased shortness of breath and weakness. On admission he was febrile to 103.3. Laboratory data revealed a white blood cell count of 6.5, BUN/creatinine 23 and 0.9, bilirubin 1.4, alkaline phosphatase 149 , troponin 0.09. Urinalysis 1-3 RBC/50-75 WBCs. Chest x-ray, limited exam, revealed no acute process. CT of the abdomen and pelvis without IV contrast revealed scattered liver lesions, felt to represent cysts, bilateral moderate perinephric stranding without obstruction, osteopenia with multiple compression fractures involving the lower thoracic and lumbar spine, an indeterminate left adrenal mass and an enlarged prostate. He was begun on Ceftriaxone. His blood pressure did drop to 80/53 the next morning but has normalized since and he has defervesced. On September 05 blood cultures 2 and his urine culture were reported positive for gram-negative rods, all of which have been identified as E. coli. His troponins were also noted to be increased, felt to be secondary to demand ischemia. He was admitted to telemetry for treatment of the following conditions: On admission, Vitals: T-max 103.3 trended down to 99.7, tachycardia 110 trended down to 84, RR 24, now 20, BP 132/80, 95% on the free liters -CBC: No leukocytosis, stable H&H, granulocytosis 91.6% -BMP: Lactic acidosis 3.3, alk phos 149, troponin 0.091 -UA/Microbiology: Positive for nitrite/LE/WBC -CXR: Extremely technically limited exam. Recommend repeat evaluation -Abdominal CT: Limited exam, scattered hypodense lesions throughout the liver, partially seen which may represented cysts. Bilateral moderate perinephric stranding without associated obstruction. Indeterminant left adrenal mass. -EKG: Sinus tach 105 with LBBB w/o significant ST-T abnormalities. LBBB was not new based on [facility] records. Echo: His echo shows normal LVEF, abnormal septal motion consistent with left bundle branch block and mild hypokinesia of the distal septum -Interventions in ER: IV bolus 1, ceftriaxone 1, acetaminophen IV 1 #Severe sepsis (fever, tachycardia, lactic acidosis, source of infection) secondary to UTI/pyelonephritis: Urine and blood culture were positive for pansensitive E. coli, the patient was initially started on IV ceftriaxone for 2 days which was subsequently changed to IV ampicillin for 2 days and then the patient was finally switched to p.o. amoxicillin. Cardiology and ID were consulted for concerns of endocarditis however the rapid response of the patient to antibiotics and absence of leukocytosis and other signs of infection made endocarditis less likely. Patient was offered cardioversion and KATIE while in the hospital however he declined that and chose to go to see his medical services manager in [facility] # Elevated Troponins - resolved most likely was due to type II MS #Lactic Acidosis - resolved #History of Paroxysmal atrial fibrilliation S/P pacemakert in 2017, New Onset LBBB found in July 2017 History of pacemaker and s/p TAVR Patient was monitored on telemetry, was treated with his home doses of Eliquis, his blood pressure meds including amlodipine, lisinopril, Lopressor were initially held, when blood pressure improved, he was started on Lopressor 12.5 twice daily, his blood pressure was stable after that. On discharge his amlodipine was discontinued to prevent hypotension. The patient was offered KATIE while in the hospital however he said that he prefer to get it done in [facility] with his medical services manager. Cardioversion was deferred to resolution of the bacteremia. Accidentally discovered indeterminant left adrenal mass. This could be further evaluated with dedicated CT with adrenal protocol. For further follow-up as outpatient with his PCP * Diet: Regular * DVT Prophylaxis: On Eliquis * Code: Full Code Allergies: Coded Allergies: No Known Allergies (09/04/17) Disposition Summary Disposition Principal Diagnosis: Sepsis of urological origin Additional Diagnosis: Atrial fibrillation Discharge Disposition: home or self care Discharge Instructions General Discharge Information Code Status: Full Code Patient's Diet: heart healthy Patient's Activity: As tolerated Follow-Up Instructions/Appts: 1please follow-up with your PCP in 1 week of discharge 2please follow-up with your medical services manager in 1 week of discharge 3please follow-up with your urologist in 1 week of discharge Medications at Discharge Discharge Medications: Stop taking the following medications: Amlodipine Besylate (Amlodipine Besylate) 10 MG TABLET ORAL DAILY Continue taking these medications: Metoprolol Succ XL (Toprol XL) 50 MG TAB.ER.24H 1 Tablet ORAL DAILY Apixaban (Eliquis) 5 MG TABLET 1 Tablet ORAL TWICE DAILY Comments: Last Taken: 09/09/17 Time: 9:00 AM Calcium (Elemental-Fr Calcarb) (Calcium Carbonate) 600 MG CALCIUM (1,500 MG) TABLET 1 Tablet ORAL TWICE DAILY Comments: NOT GIVEN IN HOSPITAL Clopidogrel Bisulfate (Clopidogrel) 75 MG TABLET 1 Tablet ORAL DAILY Lotrisone (Lotrisone Cream) 1 %-0.05 % CREAM..G. 1 Application On the skin Every Morning-Night Instructions: apply to affected area(s) Ubidecarenone (Coenzyme Q10) 200 MG CAPSULE 1 Tablet ORAL DAILY [place]-3 Fatty Acids (Fish Oil Concentrate) 1,000 MG CAPSULE 1 Capsule ORAL DAILY Lisinopril (Lisinopril) 20 MG TABLET 1 Tablet ORAL DAILY Comments: NOT GIVEN IN HOSPITAL Melatonin (Melatonin) 3 MG TABLET 1 Tablet ORAL Every night Mometasone Furoate (Elocon) 0.1 % CREAM..G. 1 Application On the skin TWICE DAILY Instructions: apply to affected area(s) Multivitamin (Multivitamins) 1 EACH CAPSULE 1 Tablet ORAL DAILY Mirabegron (Myrbetriq) 50 MG TAB.ER.24H 1 Tablet ORAL DAILY Pravastatin Sodium (Pravastatin Sodium) 40 MG TABLET 1 Tablet ORAL DAILY Budesonide/Formoterol Fumarate (Symbicort 160-4.5 Mcg Inhaler) 160 MCG-4.5 MCG/ ACTUATION HFA.AER.AD 2 Puff Inhale through mouth TWICE DAILY Comments: Last Taken: 09/09/17 Time: 9:00 AM Escitalopram Oxalate (Lexapro) 20 MG TABLET 1 Tablet ORAL DAILY Qty = 30 Instructions: . Comments: Last Taken: 09/09/17 Time: 9:00 AM This prescription has been renewed Start taking the following new medications: Amoxicillin (Amoxicillin) 500 MG CAPSULE 500 Milligram ORAL THREE TIMES DAILY Qty = 27 No Refills Copies To: Beverly DO,Tommy W. Attending MD Review Statement Documenting Attending: Meghan CRUZ,Ian
[2017-09-08 17:28] VITALS: BP 80/0
[2017-09-08 22:00] VITALS: BP 172/88
[2017-09-09 06:53] VITALS: BP 142/74
--- NOTE | 2017-09-09 07:17 | PN- Housestaff ---
Monica CRUZ,Cassia 09/09/17 0716: Subjective Follow-up For: Urosepsis Tele-Events Since Last Visit: No overnight events, A. fib, heart rate 80, MD 0.2 was BBB Subjective: Patient was seen and examined at bedside, he denies any complaints, his blood culture was negative Review of Systems Constitutional: Denies: no symptoms. Objective Last 24 Hrs of Vital Signs/I&O Vital Signs Date Time Temp Pulse Resp B/P B/P Pulse O2 O2 Flow FiO2 Mean Ox Delivery Rate 09/09 0852 82 142/74 09/09 0653 97.6 82 16 142/74 98 Room Air 09/08 2200 97.5 90 20 172/88 93 Room Air 09/08 2127 118 172/88 09/08 1850 92 Room Air 09/08 1600 Room Air Intake & Output 09/09 1600 09/09 0800 09/09 0000 Intake Total 300 320 450 Output Total 224 003 0175 Balance -200 -180 -1000 Intake, Oral 300 320 450 Output, Urine 146 239 7617 Patient 207 lb Weight Weight Bed scale Measurement Method Physical Exam General Appearance: Alert, Oriented X3, Cooperative, No Acute Distress HEENT: Atraumatic, PERRLA, EOMI, Mucous Membr. moist/pink Neck: Supple, No JVD Cardiovascular: Normal S1, Normal S2, No Murmurs Lungs: Clear to Auscultation Abdomen: Normal Bowel Sounds, Soft, No Tenderness Neurological: Normal Speech, Strength at 5/5 X4 Ext, Normal Tone, Sensation Intact, Cranial Nerves 3-12 NL Extremities: No Clubbing, No Cyanosis, No Edema Assessment/Plan Assessment: 77 y/o male with PMH of CAD s/p cardiac stents, s/p TAVR, asthma who was brought to the ED for evaluation of altered mental staus and exertional chest pain. Assessment: 1. Urosepsisboth urine culture and blood culture grew E. coli 2. Pyelonephritis 3. Elevated Troponins - resolved 4. Lactic Acidosis - resolved 5. E. coli bacteremia 6. Left lower lobe pneumonia with moderate associated effusion. 7. History of Paroxysmal atrial fibrilliation S/P pacemakert in 2018 8. New Onset LBBB found in July 2017 9. History of pacemaker and s/p TAVR 10.. Accidentally discovered indeterminant left adrenal mass. This could be further evaluated with dedicated CT with adrenal protocol. Plan: * Continue monitoring on telemetry for now. * Continue supplemental oxygen to maintain target oxygen saturations > 92%. Currently on 3.5L. Will wean off as tolerated. * His urine culture is growing pansensitive E.coli. * DC ceftriaxone * DC ampicillin * Continue amoxicillin 500 mg po Q 8 hrs as per ID * His troponins have trended down. * His echo shows normal LVEF, abnormal septal motion consistent with left bundle branch block and mild hypokinesia of the distal septum. * Continue Eliquis. Will hold his antihypertensives for now as his blood pressure is running on the low side. * Replete electrolytes as needed. * F/U on Repeat blood culture * Patient will need further investigation regarding his left adrenal mass as an outpatient Patient is stable to be discharged home today to follow-up with his security systems administrator as an out patient for cardioversion and KATIE * Diet: Regular * DVT Prophylaxis: On Eliquis * Code: Full Code Problem List: 1. Sepsis 2. UTI (urinary tract infection) Pain Ratin Pain Location: n/a Pain Goal: Remain pain free Pain Plan: pathway Tomorrow's Labs & Rationales: n/a Ian Christianson 09/09/17 1040: Attending MD Review Statement Attending Statement Attending MD Statement: examined this patient, discuss w/resident/PA/INTERIOR DESIGN PROFESSIONAL, agreed w/resident/PA/INTERIOR DESIGN PROFESSIONAL, discussed with family, reviewed EMR data (avail), discussed with nursing, discussed with case mgmt, reviewed images, amended to note Attending Assessment/Plan: 77-year-old male with multiple medical problems including coronary artery disease, TAVR on Eliquis, afib, hypertension and hyperlipidemia who was brought in by the family for weakness and confusion. Sepsis 2/2 UTI with bacteremia repeat blood culture s negative. ID recs followed. Hypotension with improvement: resume b diamond and tao inhibitor at discharge. H/O CAD with possible type 2 NH ACS ruled out. He is on the plavix, statin, b diamond afib rate controlled better at discharge, follow cardiology. A/c as per cardiology. prostatemegaly and bladder spasms: follow urology outpatient [facility] Infectious disease FOLLOW UP PCP in 1-2 weeks of discharge Cardiology in 1-2 weeks of discharge Urology in 2-3 weeks of discharge.
[2017-09-09 08:52] VITALS: BP 142/74
[2017-09-09] MEDS ORDERED: AMOXICILLIN500 M2 PO (10:20)
--- NOTE | 2017-09-09 10:53 | PN- Cardiology ---
Subjective Subjective: The patient is comfortable. No current complaints. No chest pain. No palpitations. No diaphoresis. No nausea or vomiting. Objective Vital Signs and I&Os Vital Signs Date Time Temp Pulse Resp B/P B/P Pulse O2 O2 Flow FiO2 Mean Ox Delivery Rate 09/09 0852 82 142/74 / 0653 97.6 82 16 142/74 98 Room Air 09/08 2200 97.5 90 20 172/88 93 Room Air 09/08 2127 118 172/88 09/08 1850 92 Room Air 09/08 1600 Room Air 09/08 1414 97.8 76 20 162/78 94 Room Air 09/08 1342 76 162/78 Intake & Output 09/09 1600 09/09 0800 09/09 0000 09/08 1600 09/08 0809/08 0000 Intake Total 300 320 450 700 220 500 Output Total 771 838 2861 150 1150 800 Balance -200 -180 -1000 550 -930 -300 Intake, Oral 300 320 450 700 220 500 Output, Urine 286 193 8388 150 1150 800 Patient 207 lb 242 lb Weight Weight Bed scale Measurement Method Physical Exam: Gen: The patient is in no acute distress HEENT: Normal nose, ears, and oropharynx. Pupils equal bilaterally. Conjunctiva normal. Neck: Supple with no JVD, no masses, and no thyromegaly Lungs: Clear to auscultation with normal respiratory effort Heart: Irregularly irregular, S1, S2, 2/6 systolic murmur. No peripheral edema, 2+ pulses in the lower extremities bilaterally Abdomen: Soft, nontender, no masses. No hepatomegaly. No splenomegaly Extremities: No clubbing or cyanosis. Normal muscle strength in the upper and lower extremities Skin: Normal skin turgor with no skin ulcers or lesions noted. Neuro: Cranial nerves intact. Sensation intact Psych: Alert and oriented x 3 with appropriate affect Current Medications: Current Medications Sig/Holley Start time Last Medication Dose Route Stop Time Status Admin Acetaminophen 650 MG Q4P PRN 09/05 1245 AC 09/05 PO 1241 Albuterol Sulfate 3 ML BID 09/05 2100 AC 09/08 INH 1850 Amoxicillin 500 MG TID 09/08 1400 AC 09/09 PO 0851 Ampicillin 2,000 MG Q8 09/07 1433 DC 09/08 Sodium Chloride 100 ML IV 0534 Apixaban 5 MG BID 09/05 1215 AC 09/09 PO 0852 Budesonide/ 2 PUF BID 09/05 2100 AC 09/09 Formoterol Fumarate INH 0852 Clopidogrel Bisulfate 75 MG DAILY 09/05 0900 AC 09/09 PO 0852 Clotrimazole 1 MITALI BID 09/05 0900 DC 09/09 TOP 0853 Escitalopram Oxalate 20 MG DAILY 09/05 0900 AC 09/09 PO 0852 Melatonin 3 MG QPM 09/05 0200 AC 09/08 PO 2123 Metoprolol Tartrate 12.5 MG BID 09/08 0941 AC 09/09 PO 0852 Pravastatin Sodium 40 MG 1700 09/05 1700 AC 09/08 PO 1705 Triamcinolone 1 MITALI BID 09/05 0900 AC 09/09 Acetonide TOP 0853 Results Last 48 Hrs of Labs/Mics: Laboratory Tests 09/08/17 0623: Anion Gap 6, Estimated GFR > 60, BUN/Creatinine Ratio 15.7, CBC w Diff NO MAN DIFF REQ, RBC 3.91 L, MCV 97.6 H, MCH 33.3 H, MCHC 34.2, RDW 13.4, MPV 7.7, Gran % 73.0, Lymphocytes % 14.3 L, Monocytes % 10.5 H, Eosinophils % 1.8, Basophils % 0.4, Absolute Granulocytes 5.2, Absolute Lymphocytes 1.0 L, Absolute Monocytes 0.7 H, Absolute Eosinophils 0.1, Absolute Basophils 0 Assessment/Plan Assessment/Plan Assessment: 1. Coronary artery disease, status post coronary stent placement 2 in June 2017 2. 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 Permanent pacemaker placed July 2017 4. New onset left bundle branch block noted in July 2017 5. Paroxysmal atrial fibrillation, currently in atrial fibrillation.. Sotalol was recently discontinued because of prolonged QT interval with left bundle branch block. Ventricular rate is currently normal off rate control medications. 6. Recent atypical chest pain, likely nonischemic 7. Gram-negative aren bacteremia, with possible urinary tract infection and possible pneumonia on chest x-ray 8. Hypokalemia 9. Mild troponin elevation, likely type II [place] Plan: * The patient has declined inpatient KATIE cardioversion, because he prefers to have it done as an outpatient at [facility]. * Continue Eliquis * Continue other cardiac medications * Antibiotic therapy as per ID * Follow up with Dr.Taikowski in 1 week. Cardioversion will be arranged as outpatient, with possible reinitiation of antiarrhythmic therapy. Continue telemetry? Yes
[2017-09-09] MEDS ORDERED: LEXAPRO20 M1 PO (11:04)
== END 2017-09-09 11:11 | DRG 871 ==
LOC: ERH 20:43 → ERHI 09-05 00:36 → 1NO 09-05 00:36 → EDBEDREQ 09-05 04:12 → ENRESERV 09-05 04:16 → 1NO 09-05 06:42 → ENPENDDIS 09-09 10:30 → 1NO 09-09 11:11
PROVIDERS: Emergency Medicine; Internal Medicine; Student in an Organized Health Care Education/Training Program
DX: A41.51 Sepsis due to Escherichia coli [E. coli] (principal); I21.A1 Myocardial infarction type 2; E87.2 Acidosis; N10 Acute pyelonephritis; M84.48XA Pathological fracture, other site, initial encounter for fracture; I48.0 Paroxysmal atrial fibrillation; R65.20 Severe sepsis without septic shock; I44.7 Left bundle-branch block, unspecified; E27.9 Disorder of adrenal gland, unspecified; M85.88 Other specified disorders of bone density and structure, other site; E78.5 Hyperlipidemia, unspecified; E87.6 Hypokalemia; L40.9 Psoriasis, unspecified; I25.10 Atherosclerotic heart disease of native coronary artery without angina pectoris; Z95.0 Presence of cardiac pacemaker; Z90.79 Acquired absence of other genital organ(s); Z95.2 Presence of prosthetic heart valve
CPT/HCPCS: 1NP; 36592; 71045; 74176; 81001; 82436; 87040; 87086; 93005; 93010; 93306; 96374; 96375; 99291; J0131; J0290; J0690; J0696; J3490